=== PATIENT | female | born 1990 | race African-American/Black ===

== ENCOUNTER 2016-06-28 22:21 | Emergency (ER) | payer MEDICARE, OTHER ==
[~2016-06-28] VITALS: Ht 172.7 cm; Wt 113.0 kg
[~2016-06-28 22:21] MED LIST: OLAN10TA3 PO; VITAD1000 PO
[2016-06-28 23:10] LABS: BASOPHILS % (AUTO) 0.5 % (0.0-2.0); EOSINOPHILS % (AUTO) 0.9 % (1.0-6.0); HEMATOCRIT 35.3 % (36-46); HEMOGLOBIN 11.4 g/dL (12.0-16.0); LYMPHOCYTES # (AUTO) 3.9 K/uL (1.0-4.8); LYMPHOCYTES % (AUTO) 32.8 % (22.0-44.0); MEAN CORPUSCULAR HEMOGLOBIN 27.4 pg (26.0-34.0); MEAN CORPUSCULAR HGB CONC 32.3 G/dL (31.0-37.0); MEAN CORPUSCULAR VOLUME 85 fL (80-100); MONOCYTES # (AUTO) 0.7 K/uL (0.1-1.0); MONOCYTES % (AUTO) 5.7 % (2.0-9.0); NEUTROPHILS # (AUTO) 7.1 K/uL (1.8-7.7); NEUTROPHILS % (AUTO) 60.1 % (40.0-70.0); PLATELET COUNT (AUTO) 456 K/uL (150-450); RED BLOOD CELL COUNT(AUTO) 4.16 MIL/uL (4.00-5.20); RED CELL DISTRIBUTION WIDTH 15.1 % (11.5-14.5); WHITE BLOOD COUNT (AUTO) 11.8 K/uL (4.5-11.0)
[2016-06-28 23:14] LABS: ANION GAP 10 mmol/L (8-16); CALCIUM, TOTAL 9.1 mg/dL (8.8-10.5); CARBON DIOXIDE 27 mmol/L (22-29); CHLORIDE 102 mmol/L (98-107); CREATININE 0.92 mg/dL (0.60-1.30); GLOMERULAR FILTR. RATE CALC > 60 mL/min (>60); POTASSIUM 3.3 mmol/L (3.5-5.1); SODIUM SERUM 139 mmol/L (136-145); UREA NITROGEN, BLOOD 9 mg/dL (7-18)
[2016-06-28 23:19] LABS: ALANINE AMINOTRANSFERASE 37 U/L (12-78); ALBUMIN 3.8 g/dL (3.4-5.0); ASPARTATE AMINOTRANSFERASE 27 U/L (15-37); BILIRUBIN,TOTAL 0.6 mg/dL (0.1-1.0); TOTAL PROTEIN, SERUM 8.8 g/dL (6.4-8.2)
[2016-06-29] MEDS ORDERED: OLANZapine 5 MG TABLET PO ONE (01:15)
[2016-06-29] MEDS ORDERED: LORazepam 1 MG TABLET PO ONE (02:30)
[2016-06-29 03:03] VITALS: BP 128/69
[2016-08-13] MEDS ORDERED: FERR-89 PO (13:23)
[2016-08-13] MEDS ORDERED: VITAD1000 PO (13:23)
[2016-08-13] MEDS ORDERED: OLAN10TA6 PO (13:25)
[2016-08-13] MEDS ORDERED: NALT50 PO ×2 (13:26→16:18)
[2016-08-13] MEDS ORDERED: OLAN5Z PO (16:18)
== END 2016-06-29 05:54 | disposition home or self-care (01) ==
LOC: EMS 22:23 → MERGE 22:23 → EMS 06-29 05:54
DX: F15.10 Other stimulant abuse, uncomplicated (principal); F19.959 Other psychoactive substance use, unspecified with psychoactive substance-induced psychotic disorder, unspecified; F17.210 Nicotine dependence, cigarettes, uncomplicated; F41.9 Anxiety disorder, unspecified; F32.9 Major depressive disorder, single episode, unspecified; M19.90 Unspecified osteoarthritis, unspecified site; Z88.8 Allergy status to other drugs, medicaments and biological substances
CPT/HCPCS: 36415; 80053; 80307; 85025; 99284; G0480

== ENCOUNTER 2016-08-03 00:39 | Emergency (ER) | payer MEDICARE, OTHER ==
[~2016-08-03] VITALS: Ht 172.7 cm; Wt 97.7 kg
[2016-08-03 02:42] LABS: ANION GAP 5 mmol/L (8-16); BASOPHILS % (AUTO) 0.6 % (0.0-2.0); CALCIUM, TOTAL 8.8 mg/dL (8.8-10.5); CARBON DIOXIDE 29 mmol/L (22-29); CHLORIDE 103 mmol/L (98-107); CREATININE 0.93 mg/dL (0.60-1.30); EOSINOPHILS % (AUTO) 2.5 % (1.0-6.0); GLOMERULAR FILTR. RATE CALC > 60 mL/min (>60); HEMOGLOBIN 10.9 g/dL (12.0-16.0); LYMPHOCYTES % (AUTO) 36.7 % (22.0-44.0); MEAN CORPUSCULAR HEMOGLOBIN 28.2 pg (26.0-34.0); MEAN CORPUSCULAR VOLUME 85 fL (80-100); MONOCYTES # (AUTO) 0.7 K/uL (0.1-1.0); MONOCYTES % (AUTO) 6.8 % (2.0-9.0); NEUTROPHILS # (AUTO) 5.8 K/uL (1.8-7.7); NEUTROPHILS % (AUTO) 53.4 % (40.0-70.0); PLATELET COUNT (AUTO) 406 K/uL (150-450); POTASSIUM 3.9 mmol/L (3.5-5.1); RED BLOOD CELL COUNT(AUTO) 3.86 MIL/uL (4.00-5.20); RED CELL DISTRIBUTION WIDTH 16.4 % (11.5-14.5); SODIUM SERUM 137 mmol/L (136-145); UREA NITROGEN, BLOOD 13 mg/dL (7-18); WHITE BLOOD COUNT (AUTO) 10.9 K/uL (4.5-11.0)
[2016-08-03 02:48] LABS: ALANINE AMINOTRANSFERASE 24 U/L (12-78); ALBUMIN 3.4 g/dL (3.4-5.0); ASPARTATE AMINOTRANSFERASE 15 U/L (15-37); BILIRUBIN,TOTAL 0.2 mg/dL (0.1-1.0); TOTAL PROTEIN, SERUM 7.5 g/dL (6.4-8.2)
[2016-08-03 09:28] VITALS: BP 120/74
[2016-08-13] MEDS ORDERED: FERR-89 PO (13:23)
[2016-08-13] MEDS ORDERED: VITAD1000 PO (13:23)
[2016-08-13] MEDS ORDERED: OLAN10TA6 PO (13:25)
[2016-08-13] MEDS ORDERED: NALT50 PO ×2 (13:26→16:18)
[2016-08-13] MEDS ORDERED: OLAN5Z PO (16:18)
== END 2016-08-03 09:33 | disposition home or self-care (01) ==
LOC: EMS 00:42 → MERGE 00:42 → EMS 09:33
DX: F25.9 Schizoaffective disorder, unspecified (principal); F41.9 Anxiety disorder, unspecified; F32.9 Major depressive disorder, single episode, unspecified; F17.210 Nicotine dependence, cigarettes, uncomplicated; F11.90 Opioid use, unspecified, uncomplicated; F19.90 Other psychoactive substance use, unspecified, uncomplicated; Z88.8 Allergy status to other drugs, medicaments and biological substances
CPT/HCPCS: 36415; 80053; 85025; 99284; G0480

== ENCOUNTER 2016-08-18 08:55 | Emergency (ER) | payer MEDICARE, OTHER ==
[~2016-08-18] VITALS: Ht 180.3 cm; Wt 109.1 kg
[~2016-08-18 08:55] MED LIST changes: +FERR-89 PO; +NALT50 PO; -OLAN10TA3 PO; +OLAN5Z PO
[2016-08-18 10:14] LABS: BASOPHILS % (AUTO) 0.4 % (0.0-2.0); HEMOGLOBIN 11.5 g/dL (12.0-16.0); LYMPHOCYTES # (AUTO) 1.8 K/uL (1.0-4.8); LYMPHOCYTES % (AUTO) 15.8 % (22.0-44.0); MEAN CORPUSCULAR HEMOGLOBIN 27.5 pg (26.0-34.0); MEAN CORPUSCULAR VOLUME 83 fL (80-100); MONOCYTES # (AUTO) 0.7 K/uL (0.1-1.0); MONOCYTES % (AUTO) 5.9 % (2.0-9.0); NEUTROPHILS # (AUTO) 8.6 K/uL (1.8-7.7); NEUTROPHILS % (AUTO) 76.9 % (40.0-70.0); PLATELET COUNT (AUTO) 355 K/uL (150-450); RED CELL DISTRIBUTION WIDTH 16.2 % (11.5-14.5); WHITE BLOOD COUNT (AUTO) 11.2 K/uL (4.5-11.0)
[2016-08-18 10:27] LABS: ALANINE AMINOTRANSFERASE 32 U/L (12-78); ALBUMIN 3.7 g/dL (3.4-5.0); ANION GAP 9 mmol/L (8-16); ASPARTATE AMINOTRANSFERASE 36 U/L (15-37); BILIRUBIN,TOTAL 0.8 mg/dL (0.1-1.0); CALCIUM, TOTAL 8.9 mg/dL (8.8-10.5); CARBON DIOXIDE 28 mmol/L (22-29); CHLORIDE 103 mmol/L (98-107); CREATININE 1.01 mg/dL (0.60-1.30); GLOMERULAR FILTR. RATE CALC > 60 mL/min (>60); SODIUM SERUM 140 mmol/L (136-145); TOTAL PROTEIN, SERUM 8.2 g/dL (6.4-8.2); UREA NITROGEN, BLOOD 14 mg/dL (7-18)
[2016-08-18 10:45] LABS: POTASSIUM 2.9 mmol/L (3.5-5.1)
[2016-08-18] MEDS ORDERED: POTASSIUM CHLORIDE 20 MEQ ER TABLET PO ONE (11:15)
[2016-08-18 12:03] LABS: APPEARANCE,URINE CLOUDY (CLEAR); GLUCOSE, URINE (UA) NEGATIVE (NEGATIVE); KETONES,URINE TRACE mg/dL (NEGATIVE); LEUKOCYTE ESTERASE ,URINE SMALL (NEGATIVE); OCCULT BLOOD,URINE TRACE (NEGATIVE); PH,URINE 5.5 (5.0-8.0); PROTEIN,URINE POS 1+ (NEGATIVE)
[2016-08-18 12:08] LABS: ADD UA MICROSCOPIC YES
[2016-08-18 12:21] LABS: SQUAMOUS EPITHELIAL CELL,UR Few /LPF (None Seen)
[2016-08-18 15:50] VITALS: BP 126/83
== END 2016-08-18 15:55 | disposition home or self-care (01) ==
LOC: EMS 08:58 → EDBD 08:58 → EMS 15:55
DX: R41.82 Altered mental status, unspecified (principal); E87.6 Hypokalemia; F15.10 Other stimulant abuse, uncomplicated; F17.210 Nicotine dependence, cigarettes, uncomplicated
CPT/HCPCS: 36415; 80053; 80307; 81001; 84703; 85025; 87086; 99284; 99406; G0480

== ENCOUNTER 2016-11-13 17:25 | Inpatient (IN) | payer MEDICARE, MEDICAID ==
[~2016-11-13] VITALS: Ht 175.3 cm; Wt 119.5 kg
[~2016-11-13 17:25] MED LIST changes: -NALT50 PO; +NALT50TA6 PO; +OLAN10TA6 PO; +OLAN5TAB40 PO; -OLAN5Z PO
[2016-11-13] MEDS ORDERED: HALOPERIDOL LACTATE 5 MG/ML VIAL IM ONE (17:45)
[2016-11-13 18:27] LABS: GLUCOSE,POINT OF CARE 86 MG/DL (70-110)
[2016-11-13 18:42] LABS: BASOPHILS % (AUTO) 0.3 % (0.0-2.0); EOSINOPHILS % (AUTO) 0.9 % (1.0-6.0); HEMATOCRIT 32.3 % (36-46); HEMOGLOBIN 10.9 g/dL (12.0-16.0); LYMPHOCYTES # (AUTO) 2.8 K/uL (1.0-4.8); LYMPHOCYTES % (AUTO) 22.7 % (22.0-44.0); MEAN CORPUSCULAR HEMOGLOBIN 28.9 pg (26.0-34.0); MEAN CORPUSCULAR HGB CONC 33.8 G/dL (31.0-37.0); MEAN CORPUSCULAR VOLUME 86 fL (80-100); MONOCYTES # (AUTO) 1.3 K/uL (0.1-1.0); MONOCYTES % (AUTO) 10.3 % (2.0-9.0); NEUTROPHILS # (AUTO) 8.1 K/uL (1.8-7.7); NEUTROPHILS % (AUTO) 65.8 % (40.0-70.0); PLATELET COUNT (AUTO) 335 K/uL (150-450); RED BLOOD CELL COUNT(AUTO) 3.77 MIL/uL (4.00-5.20); RED CELL DISTRIBUTION WIDTH 17.2 % (11.5-14.5); WHITE BLOOD COUNT (AUTO) 12.3 K/uL (4.5-11.0)
[2016-11-13 19:07] LABS: ANION GAP 13 mmol/L (8-16); CALCIUM, TOTAL 8.9 mg/dL (8.8-10.5); CARBON DIOXIDE 23 mmol/L (22-29); CHLORIDE 103 mmol/L (98-107); CREATININE 0.88 mg/dL (0.60-1.30); GLOMERULAR FILTR. RATE CALC > 60 mL/min (>60); POTASSIUM 3.5 mmol/L (3.5-5.1); SODIUM SERUM 139 mmol/L (136-145); UREA NITROGEN, BLOOD 9 mg/dL (7-18)
[2016-11-13 19:11] LABS: RBC MORPHOLOGY COMMENT ABNORMAL RBC MORPH
[2016-11-13 19:13] LABS: ALANINE AMINOTRANSFERASE 44 U/L (12-78); ASPARTATE AMINOTRANSFERASE 71 U/L (15-37); BILIRUBIN,TOTAL 0.8 mg/dL (0.1-1.0); TOTAL PROTEIN, SERUM 8.7 g/dL (6.4-8.2)
[2016-11-14] MEDS ORDERED: ZOLPIDEM TARTRATE 5 MG TABLET PO PRN (09:00)
[2016-11-14] MEDS ORDERED: QUEtiapine FUMARATE 100 MG TABLET PO PRN (09:00)
[2016-11-14] MEDS ORDERED: LORazepam 2 MG TABLET PO PRN (09:00)
[2016-11-14] MEDS: OLANZapine 10 MG TABLET PO SCH (21:18)
[2016-11-14] MEDS: DiphenhydrAMINE HCL 25 MG CAPSULE PO SCH (21:18)
[2016-11-14 21:45] VITALS: BP 120/60
[2016-11-14] MEDS ORDERED: PNEUMOCOCCAL VACCINE POLYVALENT 0.5 ML VIAL [PPSV23] IM ONE (23:00)
[2016-11-15 02:42] VITALS: BP 115/62
[2016-11-15 08:03] VITALS: BP 117/64
[2016-11-15 16:24] VITALS: BP 100/65
[2016-11-15] MEDS: OLANZapine 10 MG TABLET PO SCH (20:37)
[2016-11-15] MEDS: DiphenhydrAMINE HCL 25 MG CAPSULE PO SCH (20:39)
[2016-11-16 08:51] VITALS: BP 115/60
[2016-11-16] MEDS ORDERED: HydrOXYzine PAMOATE 50 MG CAPSULE PO PRN (14:00)
[2016-11-16] MEDS ORDERED: LOPERAMIDE HCL 2 MG CAPSULE PO PRN (14:00)
[2016-11-16] MEDS ORDERED: ACETAMINOPHEN 325 MG TABLET PO PRN (14:00)
[2016-11-16] MEDS ORDERED: PROMETHAZINE HCL 25 MG TABLET PO PRN (14:00)
[2016-11-16] MEDS ORDERED: MAGNESIUM HYDROXIDE SUSPENSION 30 ML UDCUP PO PRN (14:00)
[2016-11-16] MEDS ORDERED: GuaiFENesin/D-METHORPHAN [SUGAR-FREE] 200-20MG/10 ML SYRUP UDCUP PO PRN (14:00)
[2016-11-16] MEDS ORDERED: MAG HYDROX/AL HYDROX/SIMETH ES 30 ML SUSPENSION UDCUP PO PRN (14:00)
[2016-11-16 16:03] VITALS: BP 105/62
[2016-11-16] MEDS: THIAMINE HCL 100 MG TABLET PO SCH (17:00)
[2016-11-16] MEDS: DiphenhydrAMINE HCL 25 MG CAPSULE PO SCH (20:30)
[2016-11-16] MEDS: OLANZapine 5 MG TABLET PO SCH (20:31)
[2016-11-17 08:00] VITALS: BP 101/60
[2016-11-17] MEDS: FOLIC ACID 1 MG TABLET PO SCH (08:06)
[2016-11-17] MEDS: THIAMINE HCL 100 MG TABLET PO SCH ×2 (08:06→16:51)
[2016-11-17] MEDS: MULTIVITAMINS WITH MINERALS, THERAPEUTIC TABLET PO SCH (08:06)
[2016-11-17 16:01] VITALS: BP 105/67
[2016-11-17] MEDS: FERROUS SULFATE 325 MG EC TABLET PO SCH (17:14)
[2016-11-17] MEDS: DiphenhydrAMINE HCL 25 MG CAPSULE PO SCH (20:32)
[2016-11-17] MEDS: OLANZapine 5 MG TABLET PO SCH (20:32)
[2016-11-18] MEDS: FERROUS SULFATE 325 MG EC TABLET PO SCH ×2 (06:58→17:21)
[2016-11-18 08:14] VITALS: BP 106/67
[2016-11-18] MEDS: FOLIC ACID 1 MG TABLET PO SCH (08:46)
[2016-11-18] MEDS: THIAMINE HCL 100 MG TABLET PO SCH ×2 (08:46→17:21)
[2016-11-18] MEDS: MULTIVITAMINS WITH MINERALS, THERAPEUTIC TABLET PO SCH (08:46)
[2016-11-18 16:11] VITALS: BP 102/60
[2016-11-18] MEDS: OLANZapine 5 MG TABLET PO SCH (20:09)
[2016-11-18] MEDS: DiphenhydrAMINE HCL 25 MG CAPSULE PO SCH (20:09)
[2016-11-19] MEDS: FERROUS SULFATE 325 MG EC TABLET PO SCH ×2 (07:00→16:40)
[2016-11-19 08:12] VITALS: BP 104/71
[2016-11-19] MEDS: FOLIC ACID 1 MG TABLET PO SCH (08:25)
[2016-11-19] MEDS: THIAMINE HCL 100 MG TABLET PO SCH ×2 (08:25→16:40)
[2016-11-19] MEDS: MULTIVITAMINS WITH MINERALS, THERAPEUTIC TABLET PO SCH (08:25)
[2016-11-19 08:43] LABS: BASOPHILS % (AUTO) 0.7 % (0.0-2.0); EOSINOPHILS % (AUTO) 2.4 % (1.0-6.0); HEMATOCRIT 35.7 % (36-46); LYMPHOCYTES # (AUTO) 2.6 K/uL (1.0-4.8); LYMPHOCYTES % (AUTO) 33.4 % (22.0-44.0); MEAN CORPUSCULAR HEMOGLOBIN 28.8 pg (26.0-34.0); MEAN CORPUSCULAR HGB CONC 33.5 G/dL (31.0-37.0); MEAN CORPUSCULAR VOLUME 86 fL (80-100); MONOCYTES # (AUTO) 0.6 K/uL (0.1-1.0); MONOCYTES % (AUTO) 7.8 % (2.0-9.0); NEUTROPHILS # (AUTO) 4.3 K/uL (1.8-7.7); NEUTROPHILS % (AUTO) 55.7 % (40.0-70.0); PLATELET COUNT (AUTO) 369 K/uL (150-450); RED BLOOD CELL COUNT(AUTO) 4.16 MIL/uL (4.00-5.20); RED CELL DISTRIBUTION WIDTH 16.8 % (11.5-14.5); WHITE BLOOD COUNT (AUTO) 7.7 K/uL (4.5-11.0)
[2016-11-19 16:01] VITALS: BP 118/71
[2016-11-19] MEDS: DiphenhydrAMINE HCL 25 MG CAPSULE PO SCH (20:29)
[2016-11-19] MEDS: OLANZapine 5 MG TABLET PO SCH (20:30)
[2016-11-20] MEDS: FERROUS SULFATE 325 MG EC TABLET PO SCH ×2 (06:48→17:07)
[2016-11-20] MEDS: THIAMINE HCL 100 MG TABLET PO SCH ×2 (08:21→17:07)
[2016-11-20 08:22] VITALS: BP 100/62
[2016-11-20] MEDS: FOLIC ACID 1 MG TABLET PO SCH (08:22)
[2016-11-20] MEDS: MULTIVITAMINS WITH MINERALS, THERAPEUTIC TABLET PO SCH (08:22)
[2016-11-20] MEDS ORDERED: OLAN5TAB27 PO (12:19)
[2016-11-20] MEDS ORDERED: DIPH25 PO (12:19)
[2016-11-20 16:04] VITALS: BP 132/84
[2016-11-20] MEDS ORDERED: FERR325T22 PO (17:32)
[2016-11-20] MEDS ORDERED: OLAN10TA6 PO (17:54)
[2016-11-20] MEDS ORDERED: FERR-89 PO (17:55)
[2016-11-20] MEDS ORDERED: DIPH50 PO (17:56)
== END 2016-11-20 18:35 | disposition home or self-care (01) | DRG 885 ==
LOC: EMS 17:27 → EDBD 17:27 → MERGE 11-14 10:08 → B2X 11-14 10:08
PROVIDERS: ADMIT Psychiatry & Neurology Psychiatry; ATTEND Psychiatry & Neurology Psychiatry
DX: F20.0 Paranoid schizophrenia (principal); R45.851 Suicidal ideations; Z91.19 Patient's noncompliance with other medical treatment and regimen; E55.9 Vitamin D deficiency, unspecified; E66.9 Obesity, unspecified; F15.10 Other stimulant abuse, uncomplicated; F17.200 Nicotine dependence, unspecified, uncomplicated; F32.9 Major depressive disorder, single episode, unspecified; K59.00 Constipation, unspecified; Z71.6 Tobacco abuse counseling; Z28.21 Immunization not carried out because of patient refusal
CPT/HCPCS: 82962; 87081; 96372; 99285; G0480; J1630

== ENCOUNTER 2016-11-27 20:09 | Emergency (ER) | payer MEDICARE, OTHER ==
[~2016-11-27] VITALS: Ht 175.3 cm; Wt 118.2 kg
[~2016-11-27 20:09] MED LIST changes: +DIPH25 PO; +DIPH50 PO; +OLAN5TAB27 PO
[2016-11-27 21:01] LABS: GLUCOSE,POINT OF CARE 142 MG/DL (70-110)
[2016-11-27 21:04] LABS: BASOPHILS % (AUTO) 0.4 % (0.0-2.0); EOSINOPHILS % (AUTO) 2.4 % (1.0-6.0); HEMATOCRIT 32.5 % (36-46); LYMPHOCYTES % (AUTO) 15.3 % (22.0-44.0); MEAN CORPUSCULAR VOLUME 85 fL (80-100); MONOCYTES # (AUTO) 1.1 K/uL (0.1-1.0); MONOCYTES % (AUTO) 8.2 % (2.0-9.0); NEUTROPHILS # (AUTO) 9.7 K/uL (1.8-7.7); NEUTROPHILS % (AUTO) 73.7 % (40.0-70.0); PLATELET COUNT (AUTO) 327 K/uL (150-450); RED BLOOD CELL COUNT(AUTO) 3.81 MIL/uL (4.00-5.20); RED CELL DISTRIBUTION WIDTH 15.4 % (11.5-14.5); WHITE BLOOD COUNT (AUTO) 13.1 K/uL (4.5-11.0)
[2016-11-27 21:06] LABS: ANION GAP 12 mmol/L (8-16); CARBON DIOXIDE 25 mmol/L (22-29); CHLORIDE 103 mmol/L (98-107); CREATININE 1.22 mg/dL (0.60-1.30); GLOMERULAR FILTR. RATE CALC 47 mL/min (>60); POTASSIUM 3.1 mmol/L (3.5-5.1); SODIUM SERUM 140 mmol/L (136-145); UREA NITROGEN, BLOOD 11 mg/dL (7-18)
[2016-11-27 21:11] LABS: ALANINE AMINOTRANSFERASE 33 U/L (12-78); ALBUMIN 3.9 g/dL (3.4-5.0); ASPARTATE AMINOTRANSFERASE 37 U/L (15-37); BILIRUBIN,TOTAL 0.7 mg/dL (0.1-1.0); TOTAL PROTEIN, SERUM 8.7 g/dL (6.4-8.2)
[2016-11-27] MEDS: HALOPERIDOL 1 MG TABLET PO ONE ×2 (21:26→21:34)
[2016-11-27] MEDS ORDERED: LORazepam 2 MG TABLET PO ONE (21:30)
[2016-11-28 05:05] VITALS: BP 115/62
== END 2016-11-28 05:25 | disposition home or self-care (01) ==
LOC: EDBD 20:11 → EMS 20:11 → MERGE 20:11 → EMS 11-28 05:25
DX: F19.10 Other psychoactive substance abuse, uncomplicated (principal); R40.1 Stupor; F17.200 Nicotine dependence, unspecified, uncomplicated
CPT/HCPCS: 36415; 80053; 80307; 82962; 84703; 85025; 99284; G0480

== ENCOUNTER 2017-01-11 14:39 | Inpatient (IN) | payer MEDICARE, MEDICAID ==
[~2017-01-11] VITALS: Ht 175.3 cm; Wt 120.0 kg
[2017-01-11 18:03] LABS: BASOPHILS % (AUTO) 0.5 % (0.0-2.0); EOSINOPHILS % (AUTO) 1.8 % (1.0-6.0); HEMATOCRIT 35.4 % (36-46); HEMOGLOBIN 11.9 g/dL (12.0-16.0); LYMPHOCYTES # (AUTO) 3.1 K/uL (1.0-4.8); LYMPHOCYTES % (AUTO) 26.2 % (22.0-44.0); MEAN CORPUSCULAR HEMOGLOBIN 28.9 pg (26.0-34.0); MEAN CORPUSCULAR HGB CONC 33.7 G/dL (31.0-37.0); MEAN CORPUSCULAR VOLUME 86 fL (80-100); MONOCYTES # (AUTO) 0.7 K/uL (0.1-1.0); MONOCYTES % (AUTO) 6.3 % (2.0-9.0); NEUTROPHILS # (AUTO) 7.6 K/uL (1.8-7.7); NEUTROPHILS % (AUTO) 65.2 % (40.0-70.0); PLATELET COUNT (AUTO) 402 K/uL (150-450); RED BLOOD CELL COUNT(AUTO) 4.13 MIL/uL (4.00-5.20); RED CELL DISTRIBUTION WIDTH 15.6 % (11.5-14.5); WHITE BLOOD COUNT (AUTO) 11.7 K/uL (4.5-11.0)
[2017-01-11 18:08] LABS: ANION GAP 14 mmol/L (8-16); CALCIUM, TOTAL 9.2 mg/dL (8.8-10.5); CARBON DIOXIDE 22 mmol/L (22-29); CHLORIDE 100 mmol/L (98-107); CREATININE 0.93 mg/dL (0.60-1.30); GLOMERULAR FILTR. RATE CALC > 60 mL/min (>60); POTASSIUM 3.7 mmol/L (3.5-5.1); SODIUM SERUM 136 mmol/L (136-145); UREA NITROGEN, BLOOD 15 mg/dL (7-18)
[2017-01-11 18:13] LABS: ALANINE AMINOTRANSFERASE 31 U/L (12-78); ALBUMIN 3.9 g/dL (3.4-5.0); ASPARTATE AMINOTRANSFERASE 46 U/L (15-37); BILIRUBIN,TOTAL 0.8 mg/dL (0.1-1.0); TOTAL PROTEIN, SERUM 8.6 g/dL (6.4-8.2)
[2017-01-11] MEDS ORDERED: OLANZapine 5 MG TABLET PO ONE (19:30)
[2017-01-11] MEDS ORDERED: OLANZapine 5 MG RAPDIS TABLET PO PRN (20:15)
[2017-01-11] MEDS ORDERED: ZOLPIDEM TARTRATE 10 MG TABLET PO PRN (20:15)
[2017-01-11] MEDS ORDERED: LORazepam 2 MG TABLET PO PRN (20:15)
[2017-01-12 01:00] LABS: APPEARANCE,URINE CLOUDY (CLEAR); GLUCOSE, URINE (UA) NEGATIVE (NEGATIVE); KETONES,URINE 40 mg/dL (NEGATIVE); LEUKOCYTE ESTERASE ,URINE NEGATIVE (NEGATIVE); OCCULT BLOOD,URINE NEGATIVE (NEGATIVE); PH,URINE 5.5 (5.0-8.0); PROTEIN,URINE TRACE (NEGATIVE)
[2017-01-12 01:07] LABS: ADD UA MICROSCOPIC NO
[2017-01-12 01:23] VITALS: BP 106/60
[2017-01-12 08:30] VITALS: BP 121/73
[2017-01-12] MEDS ORDERED: GuaiFENesin/D-METHORPHAN [SUGAR-FREE] 200-20MG/10 ML SYRUP UDCUP PO PRN (13:30)
[2017-01-12] MEDS ORDERED: MAGNESIUM HYDROXIDE SUSPENSION 30 ML UDCUP PO PRN (13:30)
[2017-01-12] MEDS ORDERED: ACETAMINOPHEN 325 MG TABLET PO PRN (13:30)
[2017-01-12] MEDS ORDERED: HydrOXYzine PAMOATE 50 MG CAPSULE PO PRN (13:30)
[2017-01-12] MEDS ORDERED: MAG HYDROX/AL HYDROX/SIMETH ES 30 ML SUSPENSION UDCUP PO PRN (13:30)
[2017-01-12] MEDS ORDERED: PROMETHAZINE HCL 25 MG TABLET PO PRN (13:30)
[2017-01-12] MEDS ORDERED: LOPERAMIDE HCL 2 MG CAPSULE PO PRN (13:30)
[2017-01-12 16:23] VITALS: BP 125/78
[2017-01-12] MEDS: THIAMINE HCL 100 MG TABLET PO SCH (16:24)
[2017-01-12] MEDS ORDERED: OLAN5TAB30 PO (18:49)
[2017-01-12] MEDS ORDERED: NALT50TA PO (18:49)
[2017-01-12] MEDS ORDERED: OLANZapine 5 MG RAPDIS TABLET PO SCH (21:00)
[2017-01-12] MEDS ORDERED: OLANZapine 10 MG RAPDIS TABLET PO SCH (21:00)
[2017-01-13 00:45] VITALS: BP 115/62
[2017-01-13 08:30] VITALS: BP 94/68
[2017-01-13] MEDS ORDERED: NALTREXONE HCL 50 MG TABLET PO SCH (09:00)
[2017-01-13] MEDS ORDERED: FOLIC ACID 1 MG TABLET PO SCH (09:00)
[2017-01-13] MEDS ORDERED: MULTIVITAMINS WITH MINERALS, THERAPEUTIC TABLET PO SCH (09:00)
[2017-01-13] MEDS ORDERED: CHOLECALCIFEROL (VIT D3) 1,000 UNITS TABLET PO SCH (09:00)
[2017-01-13] MEDS: THIAMINE HCL 100 MG TABLET PO SCH (09:13)
== END 2017-01-13 15:27 | disposition home or self-care (01) | DRG 885 ==
LOC: EMS 14:41 → 3EI 01-12 00:15
PROVIDERS: ADMIT Psychiatry & Neurology Psychiatry; ATTEND Psychiatry & Neurology Psychiatry
DX: F20.0 Paranoid schizophrenia (principal); E66.01 Morbid (severe) obesity due to excess calories; F19.20 Other psychoactive substance dependence, uncomplicated; E55.9 Vitamin D deficiency, unspecified; F11.90 Opioid use, unspecified, uncomplicated; F12.90 Cannabis use, unspecified, uncomplicated; F15.10 Other stimulant abuse, uncomplicated; F17.210 Nicotine dependence, cigarettes, uncomplicated; G47.00 Insomnia, unspecified; K59.00 Constipation, unspecified; Z68.39 Body mass index [BMI] 39.0-39.9, adult; Z91.14 Patient's other noncompliance with medication regimen; Z91.19 Patient's noncompliance with other medical treatment and regimen; Z88.8 Allergy status to other drugs, medicaments and biological substances; Z79.899 Other long term (current) drug therapy; Z71.51 Drug abuse counseling and surveillance of drug abuser; Z71.6 Tobacco abuse counseling
CPT/HCPCS: 93005; 99285; G0480

== ENCOUNTER 2017-02-16 16:54 | Inpatient (IN) | payer MEDICARE, MEDICAID ==
[~2017-02-16] VITALS: Ht 175.3 cm; Wt 123.8 kg
[~2017-02-16 16:54] MED LIST changes: +NALT50TA PO; -NALT50TA6 PO; +OLAN5TAB30 PO; -OLAN5TAB40 PO; -VITAD1000 PO
[2017-02-16 20:13] LABS: BASOPHILS % (AUTO) 0.8 % (0.0-2.0); EOSINOPHILS % (AUTO) 2.7 % (1.0-6.0); HEMATOCRIT 33.6 % (36-46); HEMOGLOBIN 11.2 g/dL (12.0-16.0); LYMPHOCYTES # (AUTO) 3.1 K/uL (1.0-4.8); LYMPHOCYTES % (AUTO) 28.7 % (22.0-44.0); MEAN CORPUSCULAR HGB CONC 33.3 G/dL (31.0-37.0); MEAN CORPUSCULAR VOLUME 87 fL (80-100); MONOCYTES # (AUTO) 0.9 K/uL (0.1-1.0); MONOCYTES % (AUTO) 8.4 % (2.0-9.0); NEUTROPHILS # (AUTO) 6.4 K/uL (1.8-7.7); NEUTROPHILS % (AUTO) 59.4 % (40.0-70.0); PLATELET COUNT (AUTO) 406 K/uL (150-450); RED BLOOD CELL COUNT(AUTO) 3.87 MIL/uL (4.00-5.20); RED CELL DISTRIBUTION WIDTH 15.6 % (11.5-14.5)
[2017-02-16 20:30] LABS: ANION GAP 8 mmol/L (8-16); CALCIUM, TOTAL 8.7 mg/dL (8.8-10.5); CARBON DIOXIDE 28 mmol/L (22-29); CHLORIDE 104 mmol/L (98-107); CREATININE 0.91 mg/dL (0.60-1.30); GLOMERULAR FILTR. RATE CALC > 60 mL/min (>60); GLUCOSE,RANDOM 123 mg/dL (70-110); SODIUM SERUM 140 mmol/L (136-145); UREA NITROGEN, BLOOD 12 mg/dL (7-18)
[2017-02-16 20:36] LABS: ALANINE AMINOTRANSFERASE 73 U/L (12-78); ALBUMIN 3.3 g/dL (3.4-5.0); ALKALINE PHOSPHATASE 58 U/L (46-116); ASPARTATE AMINOTRANSFERASE 68 U/L (15-37); BILIRUBIN,TOTAL 0.4 mg/dL (0.1-1.0); TOTAL PROTEIN, SERUM 7.9 g/dL (6.4-8.2)
[2017-02-16] MEDS ORDERED: OLANZapine 5 MG RAPDIS TABLET PO PRN (20:45)
[2017-02-16] MEDS ORDERED: LORazepam 2 MG TABLET PO PRN (20:45)
[2017-02-16] MEDS ORDERED: ZOLPIDEM TARTRATE 10 MG TABLET PO PRN (20:45)
[2017-02-16] MEDS ORDERED: QUEtiapine FUMARATE 100 MG TABLET PO PRN (21:00)
[2017-02-16] MEDS: DiphenhydrAMINE HCL 25 MG CAPSULE PO SCH (21:16)
[2017-02-16] MEDS: OLANZapine 5 MG TABLET PO SCH (21:17)
[2017-02-16 21:47] LABS: CHOL/HDL RATIO 2.8 (3.9-5.7); CHOLESTEROL 177 mg/dL (131-200); FREE T4 (FREE THYROXINE) 1.25 ng/dL (0.76-1.46); HDL CHOLESTEROL 63 mg/dL (40-60); LDL CHOL (CALC.) 101 mg/dL (0-130); THYROID STIMULATING HORMONE 1.74 uIU/mL (0.36-3.74); TRIGLYCERIDES 64 mg/dL (15-150)
[2017-02-16] MEDS ORDERED: INFLUENZA VIRUS VACCINE QVS 2017-18 (3YR+)/PF 60 MCG/0.5 ML SYRINGE IM ONE (23:45)
[2017-02-16 23:53] VITALS: BP 102/63
[2017-02-17] MEDS ORDERED: LORazepam 1 MG TABLET PO PRN (00:45)
[2017-02-17 10:00] VITALS: BP 121/71
[2017-02-17] MEDS ORDERED: ALBUTEROL SULFATE HFA 90 MCG/PUFF 8 GM INHALER IH PRN (15:30)
[2017-02-17] MEDS ORDERED: MAG HYDROX/AL HYDROX/SIMETH ES 30 ML SUSPENSION UDCUP PO PRN (15:30)
[2017-02-17] MEDS ORDERED: BACITRACIN 28.4 GM OINTMENT TP PRN (15:30)
[2017-02-17] MEDS ORDERED: IBUPROFEN 600 MG TABLET PO PRN (15:30)
[2017-02-17] MEDS ORDERED: MAGNESIUM HYDROXIDE SUSPENSION 30 ML UDCUP PO PRN (15:30)
[2017-02-17] MEDS ORDERED: LOPERAMIDE HCL 2 MG CAPSULE PO PRN (15:30)
[2017-02-17] MEDS ORDERED: CloNIDine HCL 0.1 MG TABLET PO PRN (15:30)
[2017-02-17] MEDS ORDERED: ACETAMINOPHEN 325 MG TABLET PO PRN (15:30)
[2017-02-17] MEDS ORDERED: BENZOCAINE/MENTHOL LOZENGE MM PRN (15:30)
[2017-02-17] MEDS ORDERED: ONDANSETRON HCL 4 MG TABLET PO PRN (15:30)
[2017-02-17] MEDS ORDERED: PETROLATUM,WHITE 71 GM JELLY TP PRN (15:30)
[2017-02-17 17:00] VITALS: BP 102/63
[2017-02-17] MEDS: DiphenhydrAMINE HCL 25 MG CAPSULE PO SCH (20:27)
[2017-02-17] MEDS: OLANZapine 5 MG TABLET PO SCH (20:27)
[2017-02-18] MEDS: OMEPRAZOLE 20 MG CAPSULE PO SCH (09:39)
[2017-02-18] MEDS: DOCUSATE SODIUM 100 MG CAPSULE PO SCH (09:39)
[2017-02-18 16:15] VITALS: BP 121/64
[2017-02-18] MEDS: DiphenhydrAMINE HCL 25 MG CAPSULE PO SCH (20:32)
[2017-02-18] MEDS ORDERED: OLANZapine 10 MG TABLET PO SCH (21:00)
[2017-02-19 05:49] VITALS: BP 128/66
[2017-02-19] MEDS: MULTIVITAMINS WITH MINERALS, THERAPEUTIC TABLET PO SCH (06:54)
[2017-02-19] MEDS: OMEPRAZOLE 20 MG CAPSULE PO SCH (09:08)
[2017-02-19] MEDS: DOCUSATE SODIUM 100 MG CAPSULE PO SCH (09:08)
[2017-02-19] MEDS: CHOLECALCIFEROL (VIT D3) 1,000 UNITS TABLET PO SCH (09:08)
[2017-02-19 09:39] VITALS: BP 121/75
[2017-02-19] MEDS ORDERED: LOPERAMIDE HCL 2 MG CAPSULE PO PRN (14:30)
[2017-02-19] MEDS ORDERED: GuaiFENesin/D-METHORPHAN [SUGAR-FREE] 200-20MG/10 ML SYRUP UDCUP PO PRN (14:30)
[2017-02-19] MEDS ORDERED: HydrOXYzine PAMOATE 50 MG CAPSULE PO PRN (14:30)
[2017-02-19] MEDS: THIAMINE HCL 100 MG TABLET PO SCH (16:11)
[2017-02-19 16:18] VITALS: BP 100/68
[2017-02-19] MEDS: DiphenhydrAMINE HCL 25 MG CAPSULE PO SCH (20:10)
[2017-02-19] MEDS: OLANZapine 7.5 MG TABLET PO SCH (20:11)
[2017-02-20 01:10] VITALS: BP 102/67
[2017-02-20] MEDS: MULTIVITAMINS WITH MINERALS, THERAPEUTIC TABLET PO SCH (06:50)
[2017-02-20] MEDS: DOCUSATE SODIUM 100 MG CAPSULE PO SCH (08:08)
[2017-02-20] MEDS: THIAMINE HCL 100 MG TABLET PO SCH ×2 (08:08→16:29)
[2017-02-20] MEDS: FOLIC ACID 1 MG TABLET PO SCH (08:08)
[2017-02-20] MEDS: OMEPRAZOLE 20 MG CAPSULE PO SCH (08:08)
[2017-02-20] MEDS: CHOLECALCIFEROL (VIT D3) 1,000 UNITS TABLET PO SCH (08:08)
[2017-02-20 08:19] VITALS: BP 121/65
[2017-02-20 16:00] VITALS: BP 103/63
[2017-02-20] MEDS: DiphenhydrAMINE HCL 25 MG CAPSULE PO SCH (20:24)
[2017-02-20] MEDS: OLANZapine 7.5 MG TABLET PO SCH (20:24)
[2017-02-21 06:23] VITALS: BP 120/90
[2017-02-21] MEDS: MULTIVITAMINS WITH MINERALS, THERAPEUTIC TABLET PO SCH (07:11)
[2017-02-21] MEDS: FLUoxetine HCL 20 MG CAPSULE PO SCH (08:42)
[2017-02-21] MEDS: OMEPRAZOLE 20 MG CAPSULE PO SCH (08:42)
[2017-02-21] MEDS: FOLIC ACID 1 MG TABLET PO SCH (08:42)
[2017-02-21] MEDS: CHOLECALCIFEROL (VIT D3) 1,000 UNITS TABLET PO SCH (08:42)
[2017-02-21] MEDS: THIAMINE HCL 100 MG TABLET PO SCH ×2 (08:42→16:25)
[2017-02-21] MEDS: DOCUSATE SODIUM 100 MG CAPSULE PO SCH (08:42)
[2017-02-21 08:43] VITALS: BP 108/60
[2017-02-21 16:25] VITALS: BP 95/52
[2017-02-21 18:07] VITALS: BP 106/71
[2017-02-21] MEDS: DiphenhydrAMINE HCL 25 MG CAPSULE PO SCH (20:29)
[2017-02-21] MEDS: OLANZapine 7.5 MG TABLET PO SCH (20:29)
[2017-02-22 06:45] VITALS: BP 106/68
[2017-02-22] MEDS: MULTIVITAMINS WITH MINERALS, THERAPEUTIC TABLET PO SCH (06:48)
[2017-02-22] MEDS: CHOLECALCIFEROL (VIT D3) 1,000 UNITS TABLET PO SCH (08:57)
[2017-02-22] MEDS: THIAMINE HCL 100 MG TABLET PO SCH ×2 (08:58→16:30)
[2017-02-22] MEDS: OMEPRAZOLE 20 MG CAPSULE PO SCH (08:58)
[2017-02-22] MEDS: DOCUSATE SODIUM 100 MG CAPSULE PO SCH (08:58)
[2017-02-22] MEDS: FOLIC ACID 1 MG TABLET PO SCH (08:58)
[2017-02-22] MEDS: FLUoxetine HCL 20 MG CAPSULE PO SCH (08:58)
[2017-02-22 09:35] VITALS: BP 108/60
[2017-02-22 16:19] VITALS: BP 106/62
[2017-02-22] MEDS: DiphenhydrAMINE HCL 25 MG CAPSULE PO SCH (20:43)
[2017-02-22] MEDS: OLANZapine 7.5 MG TABLET PO SCH (20:44)
[2017-02-23 01:46] VITALS: BP 106/82
[2017-02-23] MEDS: MULTIVITAMINS WITH MINERALS, THERAPEUTIC TABLET PO SCH (06:38)
[2017-02-23 08:21] VITALS: BP 104/58
[2017-02-23] MEDS: DOCUSATE SODIUM 100 MG CAPSULE PO SCH (08:57)
[2017-02-23] MEDS: OMEPRAZOLE 20 MG CAPSULE PO SCH (08:57)
[2017-02-23] MEDS: FLUoxetine HCL 20 MG CAPSULE PO SCH (08:57)
[2017-02-23] MEDS: FOLIC ACID 1 MG TABLET PO SCH (08:57)
[2017-02-23] MEDS: CHOLECALCIFEROL (VIT D3) 1,000 UNITS TABLET PO SCH (08:57)
[2017-02-23] MEDS: THIAMINE HCL 100 MG TABLET PO SCH (08:58)
[2017-02-23] MEDS ORDERED: VITAD1000 PO (14:39)
[2017-02-23] MEDS ORDERED: OMEP20 PO (14:39)
[2017-02-23] MEDS ORDERED: OLAN7.5T2 PO (14:39)
[2017-02-23] MEDS ORDERED: FLUO-191 PO (14:39)
[2017-02-23] MEDS ORDERED: DIPH25 PO (14:39)
[2017-02-23] MEDS ORDERED: DSS100 PO (14:39)
== END 2017-02-23 15:45 | disposition home or self-care (01) | DRG 885 ==
LOC: EMS 17:01 → B2X 21:42
PROVIDERS: ADMIT Psychiatry & Neurology Psychiatry; ATTEND Psychiatry & Neurology Psychiatry
DX: F20.0 Paranoid schizophrenia (principal); R45.851 Suicidal ideations; Z68.41 Body mass index [BMI] 40.0-44.9, adult; E66.9 Obesity, unspecified; I10 Essential (primary) hypertension; F32.9 Major depressive disorder, single episode, unspecified; E55.9 Vitamin D deficiency, unspecified; D64.9 Anemia, unspecified; K59.09 Other constipation; K21.9 Gastro-esophageal reflux disease without esophagitis; Z91.02 Food additives allergy status; Z56.0 Unemployment, unspecified; Z91.14 Patient's other noncompliance with medication regimen
CPT/HCPCS: 82306; 83036; 84439; 84443; 86592; 99285; G0480

== ENCOUNTER 2017-03-01 04:37 | Emergency (ER) | payer MEDICARE, OTHER ==
[~2017-03-01] VITALS: Ht 182.9 cm; Wt 118.2 kg
[~2017-03-01 04:37] MED LIST changes: -DIPH50 PO; +DSS100 PO; -FERR-89 PO; +FLUO-191 PO; -NALT50TA PO; -OLAN10TA6 PO; -OLAN5TAB27 PO; -OLAN5TAB30 PO; +OLAN7.5T2 PO; +OMEP20 PO; +VITAD1000 PO
[2017-03-01 04:43] VITALS: BP 142/98
[2017-03-01 05:44] LABS: BASOPHILS # (AUTO) 0.05 K/uL (0.00-0.20); BASOPHILS % (AUTO) 0.4 % (0.0-2.0); EOSINOPHILS # (AUTO) 0.12 K/uL (0.00-0.70); EOSINOPHILS % (AUTO) 1.02 % (1.0-6.0); HEMATOCRIT 32.8 % (36-46); HEMOGLOBIN 11.1 g/dL (12.0-16.0); LYMPHOCYTES # (AUTO) 2.7 K/uL (1.0-4.8); LYMPHOCYTES % (AUTO) 23.3 % (22.0-44.0); MEAN CORPUSCULAR HEMOGLOBIN 29.3 pg (26.0-34.0); MEAN CORPUSCULAR HGB CONC 33.9 G/dL (31.0-37.0); MEAN CORPUSCULAR VOLUME 86 fL (80-100); MONOCYTES % (AUTO) 8.7 % (2.0-9.0); NEUTROPHILS # (AUTO) 7.7 K/uL (1.8-7.7); NEUTROPHILS % (AUTO) 66.6 % (40.0-70.0); PLATELET COUNT (AUTO) 347 K/uL (150-450); RED BLOOD CELL COUNT(AUTO) 3.79 MIL/uL (4.00-5.20); RED CELL DISTRIBUTION WIDTH 15.3 % (11.5-14.5)
[2017-03-01 06:13] LABS: ANION GAP 10 mmol/L (8-16); CALCIUM, TOTAL 8.9 mg/dL (8.8-10.5); CARBON DIOXIDE 27 mmol/L (22-29); CHLORIDE 101 mmol/L (98-107); CREATININE 1.12 mg/dL (0.60-1.30); GLOMERULAR FILTR. RATE CALC > 60 mL/min (>60); GLUCOSE,RANDOM 120 mg/dL (70-110); POTASSIUM 3.5 mmol/L (3.5-5.1); SODIUM SERUM 138 mmol/L (136-145); UREA NITROGEN, BLOOD 12 mg/dL (7-18)
[2017-03-01 06:18] LABS: ALANINE AMINOTRANSFERASE 55 U/L (12-78); ALBUMIN 3.7 g/dL (3.4-5.0); ALKALINE PHOSPHATASE 65 U/L (46-116); ASPARTATE AMINOTRANSFERASE 56 U/L (15-37); BILIRUBIN,TOTAL 0.7 mg/dL (0.1-1.0); TOTAL PROTEIN, SERUM 8.2 g/dL (6.4-8.2)
== END 2017-03-01 10:03 | disposition left against medical advice (07) ==
LOC: EMS 04:39
DX: Z53.21 Procedure and treatment not carried out due to patient leaving prior to being seen by health care provider (principal)
CPT/HCPCS: 36415; 80053; 85025; G0480

== ENCOUNTER 2017-04-02 18:36 | Emergency (ER) | payer MEDICARE, OTHER ==
[~2017-04-02] VITALS: Ht 167.6 cm; Wt 136.4 kg
[2017-04-02 20:34] LABS: BASOPHILS % (AUTO) 0.5 % (0.0-2.0); EOSINOPHILS % (AUTO) 1.5 % (1.0-6.0); HEMATOCRIT 32.7 % (36-46); LYMPHOCYTES # (AUTO) 2.8 K/uL (1.0-4.8); LYMPHOCYTES % (AUTO) 21.6 % (22.0-44.0); MEAN CORPUSCULAR HEMOGLOBIN 27.8 pg (26.0-34.0); MEAN CORPUSCULAR HGB CONC 33.5 G/dL (31.0-37.0); MEAN CORPUSCULAR VOLUME 83 fL (80-100); MONOCYTES # (AUTO) 1.1 K/uL (0.1-1.0); MONOCYTES % (AUTO) 8.5 % (2.0-9.0); NEUTROPHILS # (AUTO) 8.9 K/uL (1.8-7.7); NEUTROPHILS % (AUTO) 67.9 % (40.0-70.0); PLATELET COUNT (AUTO) 410 K/uL (150-450); RED BLOOD CELL COUNT(AUTO) 3.95 MIL/uL (4.00-5.20); RED CELL DISTRIBUTION WIDTH 15.3 % (11.5-14.5)
[2017-04-02 20:40] LABS: ANION GAP 8 mmol/L (8-16); CALCIUM, TOTAL 8.9 mg/dL (8.8-10.5); CARBON DIOXIDE 26 mmol/L (22-29); CHLORIDE 103 mmol/L (98-107); CREATININE 0.87 mg/dL (0.60-1.30); GLOMERULAR FILTR. RATE CALC > 60 mL/min (>60); GLUCOSE,RANDOM 114 mg/dL (70-110); POTASSIUM 3.6 mmol/L (3.5-5.1); SODIUM SERUM 137 mmol/L (136-145); UREA NITROGEN, BLOOD 15 mg/dL (7-18)
[2017-04-02 20:46] LABS: ALANINE AMINOTRANSFERASE 35 U/L (12-78); ALBUMIN 3.6 g/dL (3.4-5.0); ALKALINE PHOSPHATASE 63 U/L (46-116); ASPARTATE AMINOTRANSFERASE 35 U/L (15-37); BILIRUBIN,TOTAL 0.5 mg/dL (0.1-1.0)
[2017-04-02] MEDS ORDERED: OLANZapine 5 MG TABLET PO ONE (22:15)
[2017-04-03 01:52] LABS: AMPHET/METH SCREEN,URINE POSITIVE (NEGATIVE); BARBITURATE SCREEN, URINE NEGATIVE (NEGATIVE); BENZODIAZEPINES SCREEN,URINE NEGATIVE (NEGATIVE); CANNABINOID SCREEN,URINE NEGATIVE (NEGATIVE); COCAINE SCREEN,URINE NEGATIVE (NEGATIVE); METHADONE SCREEN, URINE NEGATIVE (NEGATIVE); OPIATE SCREEN,URINE NEGATIVE (NEGATIVE)
[2017-04-03 01:54] LABS: PHENCYCLIDINE SCREEN,URINE NEGATIVE (NEGATIVE)
[2017-04-03 04:51] VITALS: BP 108/64
== END 2017-04-03 05:30 | disposition home or self-care (01) ==
LOC: EMS 18:40
DX: F20.0 Paranoid schizophrenia (principal); F15.10 Other stimulant abuse, uncomplicated
CPT/HCPCS: 36415; 80053; 80307; 85025; 99284; G0480

== ENCOUNTER 2017-04-09 07:14 | Inpatient (IN) | payer MEDICARE, MEDICAID ==
[~2017-04-09] VITALS: Ht 170.2 cm; Wt 123.7 kg
[2017-04-09 07:33] LABS: GLUCOSE,POINT OF CARE 113 MG/DL (70-110)
[2017-04-09 08:19] LABS: BASOPHILS % (AUTO) 0.7 % (0.0-2.0); EOSINOPHILS % (AUTO) 1.6 % (1.0-6.0); HEMATOCRIT 34.1 % (36-46); HEMOGLOBIN 11.4 g/dL (12.0-16.0); LYMPHOCYTES % (AUTO) 21.7 % (22.0-44.0); MEAN CORPUSCULAR HEMOGLOBIN 27.9 pg (26.0-34.0); MEAN CORPUSCULAR HGB CONC 33.4 G/dL (31.0-37.0); MEAN CORPUSCULAR VOLUME 84 fL (80-100); MONOCYTES # (AUTO) 0.7 K/uL (0.1-1.0); MONOCYTES % (AUTO) 7.6 % (2.0-9.0); NEUTROPHILS # (AUTO) 6.2 K/uL (1.8-7.7); NEUTROPHILS % (AUTO) 68.4 % (40.0-70.0); PLATELET COUNT (AUTO) 440 K/uL (150-450); RED BLOOD CELL COUNT(AUTO) 4.08 MIL/uL (4.00-5.20); RED CELL DISTRIBUTION WIDTH 15.2 % (11.5-14.5)
[2017-04-09 08:26] LABS: AMPHET/METH SCREEN,URINE POSITIVE (NEGATIVE); BARBITURATE SCREEN, URINE NEGATIVE (NEGATIVE); BENZODIAZEPINES SCREEN,URINE NEGATIVE (NEGATIVE); CANNABINOID SCREEN,URINE NEGATIVE (NEGATIVE); COCAINE SCREEN,URINE NEGATIVE (NEGATIVE); METHADONE SCREEN, URINE NEGATIVE (NEGATIVE); OPIATE SCREEN,URINE NEGATIVE (NEGATIVE)
[2017-04-09 08:27] LABS: PHENCYCLIDINE SCREEN,URINE NEGATIVE (NEGATIVE)
[2017-04-09 08:27] LABS: ANION GAP 10 mmol/L (8-16); CALCIUM, TOTAL 9.1 mg/dL (8.8-10.5); CARBON DIOXIDE 26 mmol/L (22-29); CHLORIDE 104 mmol/L (98-107); GLOMERULAR FILTR. RATE CALC > 60 mL/min (>60); GLUCOSE,RANDOM 101 mg/dL (70-110); POTASSIUM 3.7 mmol/L (3.5-5.1); SODIUM SERUM 140 mmol/L (136-145); UREA NITROGEN, BLOOD 13 mg/dL (7-18)
[2017-04-09 08:33] LABS: ALANINE AMINOTRANSFERASE 32 U/L (12-78); ALBUMIN 3.8 g/dL (3.4-5.0); ALKALINE PHOSPHATASE 59 U/L (46-116); ASPARTATE AMINOTRANSFERASE 29 U/L (15-37); BILIRUBIN,TOTAL 0.6 mg/dL (0.1-1.0); TOTAL PROTEIN, SERUM 8.3 g/dL (6.4-8.2)
[2017-04-09] MEDS ORDERED: HALOPERIDOL 5 MG TABLET PO PRN (09:30)
[2017-04-09] MEDS ORDERED: LORazepam 2 MG TABLET PO PRN (09:30)
[2017-04-09] MEDS ORDERED: ZOLPIDEM TARTRATE 10 MG TABLET PO PRN (09:30)
[2017-04-09 13:28] LABS: THYROID STIMULATING HORMONE 1.28 uIU/mL (0.36-3.74)
[2017-04-09 14:11] VITALS: BP 146/81
[2017-04-09 18:31] VITALS: BP 133/77
[2017-04-09] MEDS: DiphenhydrAMINE HCL 25 MG CAPSULE PO SCH (20:25)
[2017-04-09] MEDS: OLANZapine 10 MG TABLET PO SCH (20:25)
[2017-04-10 08:15] VITALS: BP 108/69
[2017-04-10] MEDS ORDERED: IBUPROFEN 600 MG TABLET PO PRN (08:15)
[2017-04-10] MEDS ORDERED: MAG HYDROX/AL HYDROX/SIMETH ES 30 ML SUSPENSION UDCUP PO PRN (08:15)
[2017-04-10] MEDS ORDERED: MAGNESIUM HYDROXIDE SUSPENSION 30 ML UDCUP PO PRN (08:15)
[2017-04-10] MEDS ORDERED: ONDANSETRON HCL 4 MG TABLET PO PRN (08:15)
[2017-04-10] MEDS ORDERED: LOPERAMIDE HCL 2 MG CAPSULE PO PRN (08:15)
[2017-04-10] MEDS ORDERED: ACETAMINOPHEN 325 MG TABLET PO PRN (08:15)
[2017-04-10] MEDS ORDERED: CloNIDine HCL 0.1 MG TABLET PO PRN (08:15)
[2017-04-10] MEDS ORDERED: BACITRACIN 28.4 GM OINTMENT TP PRN (08:15)
[2017-04-10] MEDS ORDERED: PETROLATUM,WHITE 71 GM JELLY TP PRN (08:15)
[2017-04-10] MEDS ORDERED: ALBUTEROL SULFATE HFA 90 MCG/PUFF 8 GM INHALER IH PRN (08:15)
[2017-04-10] MEDS ORDERED: BENZOCAINE/MENTHOL LOZENGE [8 LOZENGES/PACKET] MM PRN (08:30)
[2017-04-10] MEDS: FLUoxetine HCL 20 MG CAPSULE PO SCH (08:55)
[2017-04-10] MEDS: CHOLECALCIFEROL (VIT D3) 1,000 UNITS TABLET PO SCH (08:55)
[2017-04-10 16:07] VITALS: BP 101/59
[2017-04-10] MEDS: DiphenhydrAMINE HCL 25 MG CAPSULE PO SCH (20:06)
[2017-04-10] MEDS: OLANZapine 10 MG TABLET PO SCH (20:06)
[2017-04-11 08:15] VITALS: BP 106/65
[2017-04-11] MEDS: FLUoxetine HCL 20 MG CAPSULE PO SCH (09:17)
[2017-04-11] MEDS: CHOLECALCIFEROL (VIT D3) 1,000 UNITS TABLET PO SCH (09:17)
[2017-04-11 16:43] VITALS: BP 102/61
[2017-04-11] MEDS: OLANZapine 10 MG TABLET PO SCH (20:28)
[2017-04-11] MEDS: DiphenhydrAMINE HCL 25 MG CAPSULE PO SCH (20:28)
[2017-04-12] MEDS: FLUoxetine HCL 20 MG CAPSULE PO SCH (08:21)
[2017-04-12] MEDS: CHOLECALCIFEROL (VIT D3) 1,000 UNITS TABLET PO SCH (08:22)
[2017-04-12 09:10] VITALS: BP 110/69
[2017-04-12 17:12] VITALS: BP 108/58
[2017-04-12] MEDS: DiphenhydrAMINE HCL 25 MG CAPSULE PO SCH (21:19)
[2017-04-12] MEDS: OLANZapine 10 MG TABLET PO SCH (21:19)
[2017-04-13 08:30] VITALS: BP 118/77
[2017-04-13] MEDS: CHOLECALCIFEROL (VIT D3) 1,000 UNITS TABLET PO SCH (08:37)
[2017-04-13] MEDS: FLUoxetine HCL 20 MG CAPSULE PO SCH (08:37)
[2017-04-13 19:35] VITALS: BP 110/70
[2017-04-13] MEDS: DiphenhydrAMINE HCL 25 MG CAPSULE PO SCH (20:20)
[2017-04-13] MEDS: OLANZapine 10 MG TABLET PO SCH (20:21)
[2017-04-14] MEDS: CHOLECALCIFEROL (VIT D3) 1,000 UNITS TABLET PO SCH (08:19)
[2017-04-14] MEDS: FLUoxetine HCL 20 MG CAPSULE PO SCH (08:20)
[2017-04-14] MEDS ORDERED: IOVERSOL 350 MG/ML 150 ML VIAL ONE (08:21)
[2017-04-14 17:00] VITALS: BP 112/70
[2017-04-14] MEDS: DiphenhydrAMINE HCL 25 MG CAPSULE PO SCH (20:14)
[2017-04-14] MEDS: OLANZapine 10 MG TABLET PO SCH (20:14)
[2017-04-15 08:00] VITALS: BP 102/66
[2017-04-15] MEDS: CHOLECALCIFEROL (VIT D3) 1,000 UNITS TABLET PO SCH (08:26)
[2017-04-15] MEDS: FLUoxetine HCL 20 MG CAPSULE PO SCH (08:26)
[2017-04-15 17:06] VITALS: BP 111/69
[2017-04-15] MEDS: OLANZapine 10 MG TABLET PO SCH (20:38)
[2017-04-15] MEDS: DiphenhydrAMINE HCL 25 MG CAPSULE PO SCH (20:38)
[2017-04-16 08:00] VITALS: BP 108/63
[2017-04-16] MEDS: FLUoxetine HCL 20 MG CAPSULE PO SCH (09:08)
[2017-04-16] MEDS: CHOLECALCIFEROL (VIT D3) 1,000 UNITS TABLET PO SCH (09:08)
[2017-04-16] MEDS: OLANZapine 10 MG TABLET PO SCH (20:11)
[2017-04-16] MEDS: DiphenhydrAMINE HCL 25 MG CAPSULE PO SCH (20:11)
[2017-04-16 21:07] VITALS: BP 108/64
[2017-04-17 01:45] VITALS: BP 118/70
[2017-04-17 08:00] VITALS: BP 118/95
[2017-04-17] MEDS: FLUoxetine HCL 20 MG CAPSULE PO SCH (10:05)
[2017-04-17] MEDS: MULTIVITAMINS WITH IRON TABLET PO SCH (10:06)
[2017-04-17] MEDS: CHOLECALCIFEROL (VIT D3) 1,000 UNITS TABLET PO SCH (10:06)
[2017-04-17 16:32] VITALS: BP 108/69
[2017-04-17] MEDS: OLANZapine 10 MG TABLET PO SCH (20:28)
[2017-04-17] MEDS: DiphenhydrAMINE HCL 25 MG CAPSULE PO SCH (20:28)
[2017-04-18 08:12] VITALS: BP 116/80
[2017-04-18] MEDS: MULTIVITAMINS WITH IRON TABLET PO SCH (08:22)
[2017-04-18] MEDS: FLUoxetine HCL 20 MG CAPSULE PO SCH (08:22)
[2017-04-18] MEDS: CHOLECALCIFEROL (VIT D3) 1,000 UNITS TABLET PO SCH (08:22)
[2017-04-18 17:10] VITALS: BP 106/66
[2017-04-18] MEDS: DiphenhydrAMINE HCL 25 MG CAPSULE PO SCH (20:21)
[2017-04-18] MEDS: OLANZapine 10 MG TABLET PO SCH (20:21)
[2017-04-19 00:52] VITALS: BP 113/67
[2017-04-19 08:05] VITALS: BP 115/75
[2017-04-19] MEDS ORDERED: INFLUENZA VIRUS VACCINE QVS 2017-18 (3YR+)/PF 60 MCG/0.5 ML SYRINGE IM ONE (08:15)
[2017-04-19] MEDS: CHOLECALCIFEROL (VIT D3) 1,000 UNITS TABLET PO SCH (08:23)
[2017-04-19] MEDS: FLUoxetine HCL 20 MG CAPSULE PO SCH (08:23)
[2017-04-19] MEDS: MULTIVITAMINS WITH IRON TABLET PO SCH (08:23)
[2017-04-19] MEDS ORDERED: MVITFE PO (11:21)
== END 2017-04-19 15:45 | disposition home or self-care (01) | DRG 885 ==
LOC: EMS 07:19 → 3EX 12:18
PROVIDERS: ADMIT Psychiatry & Neurology Child & Adolescent Psychiatry
DX: F20.0 Paranoid schizophrenia (principal); E66.01 Morbid (severe) obesity due to excess calories; F15.20 Other stimulant dependence, uncomplicated; E55.9 Vitamin D deficiency, unspecified; F11.90 Opioid use, unspecified, uncomplicated; F17.200 Nicotine dependence, unspecified, uncomplicated; G47.00 Insomnia, unspecified; K59.00 Constipation, unspecified; Z71.6 Tobacco abuse counseling; Z79.899 Other long term (current) drug therapy; Z91.19 Patient's noncompliance with other medical treatment and regimen; Z88.8 Allergy status to other drugs, medicaments and biological substances
CPT/HCPCS: 82962; 84439; 84443; 99285; G0480

== ENCOUNTER 2017-10-21 21:29 | Emergency (ER) | payer MEDICARE, MEDICAID ==
[~2017-10-21] VITALS: Ht 175.3 cm; Wt 120.0 kg
[~2017-10-21 21:29] MED LIST changes: -DIPH25 PO; +OLAN10TA3 PO; +OLAN10TA6 PO; +OLAN20TA2 PO; -OLAN7.5T2 PO; -VITAD1000 PO
[2017-10-21 23:20] LABS: BASOPHILS % (AUTO) 0.8 % (0.0-2.0); EOSINOPHILS % (AUTO) 1.5 % (1.0-6.0); HEMATOCRIT 30.6 % (36-46); HEMOGLOBIN 10.2 g/dL (12.0-16.0); LYMPHOCYTES # (AUTO) 3.5 K/uL (1.0-4.8); MEAN CORPUSCULAR HEMOGLOBIN 26.8 pg (26.0-34.0); MEAN CORPUSCULAR HGB CONC 33.3 G/dL (31.0-37.0); MEAN CORPUSCULAR VOLUME 81 fL (80-100); MONOCYTES # (AUTO) 1.1 K/uL (0.1-1.0); MONOCYTES % (AUTO) 11.1 % (2.0-9.0); NEUTROPHILS # (AUTO) 5.4 K/uL (1.8-7.7); NEUTROPHILS % (AUTO) 52.6 % (40.0-70.0); PLATELET COUNT (AUTO) 367 K/uL (150-450); RED CELL DISTRIBUTION WIDTH 16.8 % (11.5-14.5)
[2017-10-21 23:33] LABS: ANION GAP 11 mmol/L (8-16); CALCIUM, TOTAL 8.9 mg/dL (8.8-10.5); CARBON DIOXIDE 25 mmol/L (22-29); CHLORIDE 107 mmol/L (98-107); CREATININE 0.93 mg/dL (0.60-1.30); GLOMERULAR FILTR. RATE CALC > 60 mL/min (>60); GLUCOSE,RANDOM 81 mg/dL (70-110); POTASSIUM 3.5 mmol/L (3.5-5.1); SODIUM SERUM 143 mmol/L (136-145); UREA NITROGEN, BLOOD 16 mg/dL (7-18)
[2017-10-21 23:40] LABS: ALANINE AMINOTRANSFERASE 31 U/L (12-78); ALBUMIN 3.4 g/dL (3.4-5.0); ALKALINE PHOSPHATASE 53 U/L (46-116); ASPARTATE AMINOTRANSFERASE 47 U/L (15-37); BILIRUBIN,TOTAL 0.6 mg/dL (0.1-1.0); TOTAL PROTEIN, SERUM 7.7 g/dL (6.4-8.2)
[2017-10-22] MEDS ORDERED: ACETAMINOPHEN 500 MG TABLET PO ONE (00:15)
[2017-10-22] MEDS ORDERED: HALOPERIDOL LACTATE 5 MG/ML VIAL IM ONE (00:15)
[2017-10-22] MEDS ORDERED: LORazepam 2 MG/ML VIAL IM ONE (00:15)
[2017-10-22 06:05] VITALS: BP 111/58
== END 2017-10-22 06:20 | disposition home or self-care (01) ==
LOC: EMS 21:31
DX: F25.9 Schizoaffective disorder, unspecified (principal); F17.210 Nicotine dependence, cigarettes, uncomplicated; F19.90 Other psychoactive substance use, unspecified, uncomplicated; Z91.018 Allergy to other foods
CPT/HCPCS: 36415; 80053; 85025; 96372; 99284; G0480; J1630; J2060

== ENCOUNTER 2017-11-02 14:49 | Inpatient (IN) | payer MEDICARE, MEDICAID ==
[~2017-11-02] VITALS: Ht 175.3 cm; Wt 110.0 kg
[~2017-11-02 14:49] MED LIST changes: +FERR-89 PO; -OLAN10TA6 PO; -OLAN20TA2 PO
[2017-11-02 16:09] LABS: BASOPHILS % (AUTO) 0.6 % (0.0-2.0); EOSINOPHILS % (AUTO) 1.9 % (1.0-6.0); HEMOGLOBIN 10.7 g/dL (12.0-16.0); LYMPHOCYTES # (AUTO) 2.2 K/uL (1.0-4.8); LYMPHOCYTES % (AUTO) 20.8 % (22.0-44.0); MEAN CORPUSCULAR HGB CONC 33.4 G/dL (31.0-37.0); MEAN CORPUSCULAR VOLUME 81 fL (80-100); MONOCYTES # (AUTO) 0.9 K/uL (0.1-1.0); MONOCYTES % (AUTO) 9.1 % (2.0-9.0); NEUTROPHILS % (AUTO) 67.6 % (40.0-70.0); PLATELET COUNT (AUTO) 401 K/uL (150-450); RED BLOOD CELL COUNT(AUTO) 3.96 MIL/uL (4.00-5.20); RED CELL DISTRIBUTION WIDTH 17.1 % (11.5-14.5)
[2017-11-02 16:18] LABS: ANION GAP 9 mmol/L (8-16); CALCIUM, TOTAL 8.9 mg/dL (8.8-10.5); CARBON DIOXIDE 26 mmol/L (22-29); CHLORIDE 104 mmol/L (98-107); CREATININE 0.83 mg/dL (0.60-1.30); GLOMERULAR FILTR. RATE CALC > 60 mL/min (>60); GLUCOSE,RANDOM 76 mg/dL (70-110); POTASSIUM 3.8 mmol/L (3.5-5.1); SODIUM SERUM 139 mmol/L (136-145); UREA NITROGEN, BLOOD 11 mg/dL (7-18)
[2017-11-02 16:23] LABS: ALANINE AMINOTRANSFERASE 30 U/L (12-78); ALBUMIN 3.3 g/dL (3.4-5.0); ALKALINE PHOSPHATASE 56 U/L (46-116); ASPARTATE AMINOTRANSFERASE 29 U/L (15-37); BILIRUBIN,TOTAL 0.7 mg/dL (0.1-1.0); TOTAL PROTEIN, SERUM 7.5 g/dL (6.4-8.2)
[2017-11-02 19:11] LABS: AMPHET/METH SCREEN,URINE POSITIVE (NEGATIVE); BARBITURATE SCREEN, URINE NEGATIVE (NEGATIVE); BENZODIAZEPINES SCREEN,URINE NEGATIVE (NEGATIVE); CANNABINOID SCREEN,URINE NEGATIVE (NEGATIVE); COCAINE SCREEN,URINE NEGATIVE (NEGATIVE); METHADONE SCREEN, URINE NEGATIVE (NEGATIVE); OPIATE SCREEN,URINE NEGATIVE (NEGATIVE)
[2017-11-02 19:12] LABS: PHENCYCLIDINE SCREEN,URINE NEGATIVE (NEGATIVE)
[2017-11-02] MEDS ORDERED: OLANZapine 5 MG TABLET PO ONE (20:00)
[2017-11-02] MEDS ORDERED: DiphenhydrAMINE HCL 25 MG CAPSULE PO ONE (20:30)
[2017-11-02] MEDS ORDERED: HALOPERIDOL 5 MG TABLET PO PRN (23:30)
[2017-11-02] MEDS ORDERED: ZOLPIDEM TARTRATE 10 MG TABLET PO PRN (23:30)
[2017-11-02] MEDS ORDERED: LORazepam 2 MG TABLET PO PRN (23:30)
[2017-11-03 06:38] VITALS: BP 128/82
[2017-11-03] MEDS ORDERED: NICOTINE 14 MG/24 HOUR PATCH TD PRN (07:30)
[2017-11-03] MEDS ORDERED: ACETAMINOPHEN 325 MG TABLET PO PRN (07:30)
[2017-11-03] MEDS ORDERED: MAGNESIUM HYDROXIDE SUSPENSION 30 ML UDCUP PO PRN (07:30)
[2017-11-03] MEDS ORDERED: PETROLATUM,WHITE 71 GM JELLY TP PRN (07:30)
[2017-11-03] MEDS ORDERED: LOPERAMIDE HCL 2 MG CAPSULE PO PRN (07:30)
[2017-11-03] MEDS ORDERED: ALBUTEROL SULFATE HFA 90 MCG/PUFF 8 GM INHALER IH PRN (07:30)
[2017-11-03] MEDS ORDERED: CloNIDine HCL 0.1 MG TABLET PO PRN (07:30)
[2017-11-03] MEDS ORDERED: IBUPROFEN 400 MG TABLET PO PRN (07:30)
[2017-11-03] MEDS ORDERED: GuaiFENesin/D-METHORPHAN [SUGAR-FREE] 200-20MG/10 ML SYRUP UDCUP PO PRN (07:30)
[2017-11-03] MEDS ORDERED: MAG HYDROX/AL HYDROX/SIMETH ES 30 ML SUSPENSION UDCUP PO PRN (07:30)
[2017-11-03] MEDS ORDERED: ONDANSETRON HCL 4 MG TABLET PO PRN (07:30)
[2017-11-03] MEDS ORDERED: DOCUSATE SODIUM 100 MG CAPSULE PO PRN (07:30)
[2017-11-03 08:14] VITALS: BP 101/61
[2017-11-03 16:16] VITALS: BP 120/70
[2017-11-03] MEDS: OLANZapine 10 MG TABLET PO SCH (20:36)
[2017-11-04 02:07] VITALS: BP 138/73
[2017-11-04 08:18] VITALS: BP 104/65
[2017-11-04] MEDS: FLUoxetine HCL 20 MG CAPSULE PO SCH (08:31)
[2017-11-04] MEDS ORDERED: TERBINAFINE HCL 1% 30 GM CREAM TP SCH (09:00)
[2017-11-04 16:12] VITALS: BP 101/64
[2017-11-04] MEDS: FERROUS SULFATE 325 MG EC TABLET PO SCH (16:43)
[2017-11-04] MEDS: OLANZapine 10 MG TABLET PO SCH (20:37)
[2017-11-05 01:34] VITALS: BP 107/62
[2017-11-05] MEDS: FERROUS SULFATE 325 MG EC TABLET PO SCH ×3 (06:33→17:16)
[2017-11-05 08:24] VITALS: BP 112/66
[2017-11-05 08:48] LABS: HEMOGLOBIN A1C 5.5 % (4.5-6.2)
[2017-11-05] MEDS: FLUoxetine HCL 20 MG CAPSULE PO SCH (09:03)
[2017-11-05 09:22] LABS: CHOL/HDL RATIO 2.9 (3.9-5.7); THYROID STIMULATING HORMONE 0.67 uIU/mL (0.36-3.74)
[2017-11-05 16:14] VITALS: BP 103/68
[2017-11-05] MEDS: OLANZapine 10 MG TABLET PO SCH (20:26)
[2017-11-06 01:14] VITALS: BP 112/72
[2017-11-06] MEDS: FERROUS SULFATE 325 MG EC TABLET PO SCH ×3 (06:05→16:55)
[2017-11-06 08:14] VITALS: BP 108/63
[2017-11-06] MEDS: FLUoxetine HCL 20 MG CAPSULE PO SCH (08:36)
[2017-11-06 16:06] VITALS: BP 102/68
[2017-11-06] MEDS: OLANZapine 10 MG TABLET PO SCH (20:01)
[2017-11-07 06:18] VITALS: BP 116/60
[2017-11-07] MEDS: FERROUS SULFATE 325 MG EC TABLET PO SCH ×3 (06:31→16:57)
[2017-11-07] MEDS: FLUoxetine HCL 20 MG CAPSULE PO SCH (08:23)
[2017-11-07] MEDS: OMEPRAZOLE 20 MG CAPSULE PO SCH (08:23)
[2017-11-07 08:28] VITALS: BP 105/63
[2017-11-07 16:21] VITALS: BP 101/63
[2017-11-07] MEDS: OLANZapine 10 MG TABLET PO SCH (20:11)
[2017-11-08 00:22] VITALS: BP 107/64
[2017-11-08] MEDS: FERROUS SULFATE 325 MG EC TABLET PO SCH ×3 (07:11→17:02)
[2017-11-08] MEDS: FLUoxetine HCL 20 MG CAPSULE PO SCH (08:58)
[2017-11-08] MEDS: OMEPRAZOLE 20 MG CAPSULE PO SCH (08:58)
[2017-11-08 09:08] VITALS: BP 105/68
[2017-11-08 16:50] VITALS: BP 109/59
[2017-11-08] MEDS: OLANZapine 10 MG TABLET PO SCH (20:01)
[2017-11-09 05:10] VITALS: BP 110/68
[2017-11-09] MEDS: FERROUS SULFATE 325 MG EC TABLET PO SCH (06:20)
[2017-11-09] MEDS: FLUoxetine HCL 20 MG CAPSULE PO SCH (08:31)
[2017-11-09] MEDS: OMEPRAZOLE 20 MG CAPSULE PO SCH (08:31)
[2017-11-09 08:36] VITALS: BP 120/68
== END 2017-11-09 10:50 | disposition home or self-care (01) | DRG 885 ==
LOC: EDBD → EDUNIT# 14:49 → EMS 14:56 → UNDOADMIN 23:52 → B2X 23:52
PROVIDERS: ADMIT Psychiatry & Neurology Psychiatry; ATTEND Psychiatry & Neurology Psychiatry
DX: F25.0 Schizoaffective disorder, bipolar type (principal); R45.851 Suicidal ideations; F17.210 Nicotine dependence, cigarettes, uncomplicated; F15.10 Other stimulant abuse, uncomplicated; D64.9 Anemia, unspecified; K59.00 Constipation, unspecified; K21.9 Gastro-esophageal reflux disease without esophagitis; E66.9 Obesity, unspecified; Z88.8 Allergy status to other drugs, medicaments and biological substances; Z59.0 Homelessness; Z68.35 Body mass index [BMI] 35.0-35.9, adult
CPT/HCPCS: 83036; 84443; 87081; 99285; G0480

== ENCOUNTER 2017-12-21 02:29 | Emergency (ER) | payer MEDICARE, OTHER ==
[~2017-12-21] VITALS: Ht 172.7 cm; Wt 90.9 kg
[~2017-12-21 02:29] MED LIST changes: -DSS100 PO
[2017-12-21 03:25] LABS: BASOPHILS % (AUTO) 0.7 % (0.0-2.0); HEMATOCRIT 34.1 % (36-46); HEMOGLOBIN 11.4 g/dL (12.0-16.0); LYMPHOCYTES # (AUTO) 2.3 K/uL (1.0-4.8); LYMPHOCYTES % (AUTO) 21.4 % (22.0-44.0); MEAN CORPUSCULAR HEMOGLOBIN 28.5 pg (26.0-34.0); MEAN CORPUSCULAR HGB CONC 33.6 G/dL (31.0-37.0); MEAN CORPUSCULAR VOLUME 85 fL (80-100); MONOCYTES % (AUTO) 9.2 % (2.0-9.0); NEUTROPHILS # (AUTO) 7.3 K/uL (1.8-7.7); NEUTROPHILS % (AUTO) 67.7 % (40.0-70.0); PLATELET COUNT (AUTO) 384 K/uL (150-450); RED BLOOD CELL COUNT(AUTO) 4.02 MIL/uL (4.00-5.20); RED CELL DISTRIBUTION WIDTH 16.7 % (11.5-14.5)
[2017-12-21 03:32] LABS: ALANINE AMINOTRANSFERASE 61 U/L (12-78); ALBUMIN 3.7 g/dL (3.4-5.0); ALKALINE PHOSPHATASE 76 U/L (46-116); ANION GAP 9 mmol/L (8-16); ASPARTATE AMINOTRANSFERASE 92 U/L (15-37); BILIRUBIN,TOTAL 0.9 mg/dL (0.1-1.0); CALCIUM, TOTAL 8.7 mg/dL (8.8-10.5); CARBON DIOXIDE 27 mmol/L (22-29); CHLORIDE 102 mmol/L (98-107); CREATININE 1.06 mg/dL (0.60-1.30); GLOMERULAR FILTR. RATE CALC > 60 mL/min (>60); GLUCOSE,RANDOM 104 mg/dL (70-110); SODIUM SERUM 138 mmol/L (136-145); TOTAL PROTEIN, SERUM 8.2 g/dL (6.4-8.2); UREA NITROGEN, BLOOD 15 mg/dL (7-18)
[2017-12-21 03:34] LABS: POTASSIUM 2.6 mmol/L (3.5-5.1)
[2017-12-21] MEDS ORDERED: POTASSIUM CHLORIDE 10% 40 MEQ/30 ML LIQUID UDCUP PO ONE ×2 (03:45→04:15)
[2017-12-21] MEDS ORDERED: POTASSIUM CHLORIDE 10% 40 MEQ/30 ML LIQUID UDCUP PO SCH (04:15)
[2017-12-21 05:47] VITALS: BP 111/69
== END 2017-12-21 05:53 | disposition home or self-care (01) ==
LOC: EMS 02:29
DX: F25.9 Schizoaffective disorder, unspecified (principal); E87.6 Hypokalemia; F17.210 Nicotine dependence, cigarettes, uncomplicated; F15.90 Other stimulant use, unspecified, uncomplicated; Z91.018 Allergy to other foods; Z79.899 Other long term (current) drug therapy
CPT/HCPCS: 36415; 80053; 84132; 85025; 99284; 99406; G0480

== ENCOUNTER 2017-12-26 17:23 | Emergency (ER) | payer MEDICARE, OTHER ==
[~2017-12-26] VITALS: Ht 177.8 cm; Wt 90.9 kg
[2017-12-26 17:57] LABS: BASOPHILS % (AUTO) 0.8 % (0.0-2.0); HEMATOCRIT 33.3 % (36-46); LYMPHOCYTES % (AUTO) 25.7 % (22.0-44.0); MEAN CORPUSCULAR HEMOGLOBIN 27.8 pg (26.0-34.0); MEAN CORPUSCULAR HGB CONC 33.1 G/dL (31.0-37.0); MEAN CORPUSCULAR VOLUME 84 fL (80-100); MONOCYTES # (AUTO) 0.8 K/uL (0.1-1.0); MONOCYTES % (AUTO) 10.1 % (2.0-9.0); NEUTROPHILS # (AUTO) 4.8 K/uL (1.8-7.7); NEUTROPHILS % (AUTO) 62.4 % (40.0-70.0); PLATELET COUNT (AUTO) 345 K/uL (150-450); RED BLOOD CELL COUNT(AUTO) 3.96 MIL/uL (4.00-5.20); RED CELL DISTRIBUTION WIDTH 16.5 % (11.5-14.5)
[2017-12-26 18:09] LABS: ANION GAP 7 mmol/L (8-16); CALCIUM, TOTAL 8.8 mg/dL (8.8-10.5); CARBON DIOXIDE 28 mmol/L (22-29); CHLORIDE 106 mmol/L (98-107); CREATININE 0.76 mg/dL (0.60-1.30); GLOMERULAR FILTR. RATE CALC > 60 mL/min (>60); GLUCOSE,RANDOM 91 mg/dL (70-110); POTASSIUM 3.6 mmol/L (3.5-5.1); SODIUM SERUM 141 mmol/L (136-145); UREA NITROGEN, BLOOD 10 mg/dL (7-18)
[2017-12-26 18:15] LABS: ALANINE AMINOTRANSFERASE 33 U/L (12-78); ALBUMIN 3.4 g/dL (3.4-5.0); ALKALINE PHOSPHATASE 61 U/L (46-116); ASPARTATE AMINOTRANSFERASE 30 U/L (15-37); BILIRUBIN,TOTAL 0.4 mg/dL (0.1-1.0); TOTAL PROTEIN, SERUM 7.7 g/dL (6.4-8.2)
[2017-12-26 19:43] VITALS: BP 131/93
== END 2017-12-26 20:18 | disposition home or self-care (01) ==
LOC: EMS 17:25
DX: F25.9 Schizoaffective disorder, unspecified (principal); F15.10 Other stimulant abuse, uncomplicated; F17.210 Nicotine dependence, cigarettes, uncomplicated; Z91.02 Food additives allergy status; Z79.899 Other long term (current) drug therapy
CPT/HCPCS: 36415; 80053; 85025; 99284; G0480

== ENCOUNTER 2018-01-02 12:43 | Inpatient (IN) | payer MEDICARE, MEDICAID ==
[~2018-01-02] VITALS: Ht 177.8 cm; Wt 107.0 kg
[2018-01-02 13:50] LABS: BASOPHILS % (AUTO) 0.7 % (0.0-2.0); EOSINOPHILS % (AUTO) 0.3 % (1.0-6.0); HEMATOCRIT 34.5 % (36-46); HEMOGLOBIN 11.6 g/dL (12.0-16.0); LYMPHOCYTES # (AUTO) 1.6 K/uL (1.0-4.8); LYMPHOCYTES % (AUTO) 16.6 % (22.0-44.0); MEAN CORPUSCULAR HEMOGLOBIN 27.9 pg (26.0-34.0); MEAN CORPUSCULAR HGB CONC 33.7 G/dL (31.0-37.0); MEAN CORPUSCULAR VOLUME 83 fL (80-100); MONOCYTES # (AUTO) 0.7 K/uL (0.1-1.0); MONOCYTES % (AUTO) 7.4 % (2.0-9.0); NEUTROPHILS # (AUTO) 7.1 K/uL (1.8-7.7); PLATELET COUNT (AUTO) 379 K/uL (150-450); RED BLOOD CELL COUNT(AUTO) 4.17 MIL/uL (4.00-5.20); RED CELL DISTRIBUTION WIDTH 16.1 % (11.5-14.5)
[2018-01-02 14:32] LABS: CHLORIDE 104 mmol/L (98-107); POTASSIUM 3.6 mmol/L (3.5-5.1); SODIUM SERUM 139 mmol/L (136-145)
[2018-01-02 14:42] LABS: AMPHET/METH SCREEN,URINE POSITIVE (NEGATIVE); BARBITURATE SCREEN, URINE NEGATIVE (NEGATIVE); BENZODIAZEPINES SCREEN,URINE NEGATIVE (NEGATIVE); CANNABINOID SCREEN,URINE NEGATIVE (NEGATIVE); COCAINE SCREEN,URINE NEGATIVE (NEGATIVE); METHADONE SCREEN, URINE NEGATIVE (NEGATIVE); OPIATE SCREEN,URINE NEGATIVE (NEGATIVE)
[2018-01-02 14:44] LABS: PHENCYCLIDINE SCREEN,URINE NEGATIVE (NEGATIVE)
[2018-01-02 14:54] LABS: ALANINE AMINOTRANSFERASE 37 U/L (12-78); ALBUMIN 3.7 g/dL (3.4-5.0); ALKALINE PHOSPHATASE 65 U/L (46-116); ANION GAP 10 mmol/L (8-16); ASPARTATE AMINOTRANSFERASE 43 U/L (15-37); BILIRUBIN,TOTAL 0.5 mg/dL (0.1-1.0); CALCIUM, TOTAL 8.9 mg/dL (8.8-10.5); CARBON DIOXIDE 25 mmol/L (22-29); CREATININE 0.93 mg/dL (0.60-1.30); GLOMERULAR FILTR. RATE CALC > 60 mL/min (>60); GLUCOSE,RANDOM 90 mg/dL (70-110); HCG,QUANTITATIVE < 1 mIU/mL (0-6); TOTAL PROTEIN, SERUM 8.2 g/dL (6.4-8.2); UREA NITROGEN, BLOOD 8 mg/dL (7-18)
[2018-01-02] MEDS ORDERED: DiphenhydrAMINE HCL 50 MG/ML VIAL IM ONE (15:00)
[2018-01-02] MEDS ORDERED: LORazepam 2 MG/ML VIAL IM ONE (15:00)
[2018-01-02] MEDS ORDERED: HALOPERIDOL LACTATE 5 MG/ML VIAL IM ONE (15:00)
[2018-01-02] MEDS ORDERED: HALOPERIDOL 5 MG TABLET PO PRN (15:30)
[2018-01-02] MEDS ORDERED: ZOLPIDEM TARTRATE 10 MG TABLET PO PRN (15:30)
[2018-01-02] MEDS ORDERED: LORazepam 2 MG TABLET PO PRN (15:30)
[2018-01-02 20:18] VITALS: BP 103/65
[2018-01-02] MEDS ORDERED: MAGNESIUM HYDROXIDE SUSPENSION 30 ML UDCUP PO PRN (21:45)
[2018-01-02] MEDS ORDERED: LOPERAMIDE HCL 2 MG CAPSULE PO PRN (21:45)
[2018-01-02] MEDS ORDERED: ALBUTEROL SULFATE HFA 90 MCG/PUFF 8 GM INHALER IH PRN (21:45)
[2018-01-02] MEDS ORDERED: ACETAMINOPHEN 325 MG TABLET PO PRN (21:45)
[2018-01-02] MEDS ORDERED: PETROLATUM,WHITE 71 GM JELLY TP PRN (21:45)
[2018-01-02] MEDS ORDERED: DOCUSATE SODIUM 100 MG CAPSULE PO PRN (21:45)
[2018-01-02] MEDS ORDERED: MAG HYDROX/AL HYDROX/SIMETH ES 30 ML SUSPENSION UDCUP PO PRN (21:45)
[2018-01-02] MEDS ORDERED: IBUPROFEN 400 MG TABLET PO PRN (21:45)
[2018-01-02] MEDS ORDERED: CloNIDine HCL 0.1 MG TABLET PO PRN (21:45)
[2018-01-02] MEDS ORDERED: GuaiFENesin/D-METHORPHAN [SUGAR-FREE] 200-20MG/10 ML SYRUP UDCUP PO PRN (21:45)
[2018-01-02] MEDS ORDERED: NICOTINE 14 MG/24 HOUR PATCH TD PRN (21:45)
[2018-01-02] MEDS ORDERED: ONDANSETRON HCL 4 MG TABLET PO PRN (21:45)
[2018-01-03 06:09] VITALS: BP 101/62
[2018-01-03] MEDS: FERROUS SULFATE 325 MG EC TABLET PO SCH ×3 (07:03→17:11)
[2018-01-03 08:30] VITALS: BP 108/66
[2018-01-03] MEDS: OMEPRAZOLE 20 MG CAPSULE PO SCH (09:00)
[2018-01-03] MEDS: OLANZapine 10 MG TABLET PO SCH (20:33)
[2018-01-04 06:13] VITALS: BP 106/72
[2018-01-04] MEDS: FERROUS SULFATE 325 MG EC TABLET PO SCH ×3 (06:47→17:13)
[2018-01-04 08:28] VITALS: BP 117/70
[2018-01-04] MEDS: FLUoxetine HCL 20 MG CAPSULE PO SCH (08:44)
[2018-01-04] MEDS: OMEPRAZOLE 20 MG CAPSULE PO SCH (08:44)
[2018-01-04 08:55] LABS: CHOLESTEROL 135 mg/dL (131-200); HCG,QUANTITATIVE < 1 mIU/mL (0-6); HDL CHOLESTEROL 68 mg/dL (40-60); LDL CHOL (CALC.) 58 mg/dL (0-130); THYROID STIMULATING HORMONE 0.69 uIU/mL (0.36-3.74); TRIGLYCERIDES 43 mg/dL (15-150)
[2018-01-04 09:19] LABS: HEMOGLOBIN A1C 5.4 % (4.5-6.2)
[2018-01-04 16:00] VITALS: BP 103/74
[2018-01-04] MEDS: OLANZapine 10 MG TABLET PO SCH (20:40)
[2018-01-05] MEDS: FERROUS SULFATE 325 MG EC TABLET PO SCH ×3 (06:33→16:59)
[2018-01-05 06:34] VITALS: BP 110/68
[2018-01-05 08:23] VITALS: BP 116/74
[2018-01-05] MEDS: OMEPRAZOLE 20 MG CAPSULE PO SCH (08:44)
[2018-01-05] MEDS: FLUoxetine HCL 20 MG CAPSULE PO SCH (08:44)
[2018-01-05 16:10] VITALS: BP 118/78
[2018-01-05] MEDS: OLANZapine 10 MG TABLET PO SCH (20:16)
[2018-01-06 01:23] VITALS: BP 117/76
[2018-01-06] MEDS: FERROUS SULFATE 325 MG EC TABLET PO SCH ×3 (07:04→16:30)
[2018-01-06] MEDS: OMEPRAZOLE 20 MG CAPSULE PO SCH (09:12)
[2018-01-06] MEDS: FLUoxetine HCL 20 MG CAPSULE PO SCH (09:12)
[2018-01-06 17:37] VITALS: BP 104/62
[2018-01-06] MEDS: OLANZapine 10 MG TABLET PO SCH (20:43)
[2018-01-07 06:16] VITALS: BP 110/68
[2018-01-07] MEDS: FERROUS SULFATE 325 MG EC TABLET PO SCH ×3 (06:48→16:39)
[2018-01-07 08:12] VITALS: BP 117/63
[2018-01-07] MEDS: OMEPRAZOLE 20 MG CAPSULE PO SCH (08:31)
[2018-01-07] MEDS: FLUoxetine HCL 20 MG CAPSULE PO SCH (08:31)
[2018-01-07 16:34] VITALS: BP 117/68
[2018-01-07] MEDS: OLANZapine 10 MG TABLET PO SCH (20:36)
[2018-01-08] MEDS: FERROUS SULFATE 325 MG EC TABLET PO SCH ×3 (06:54→17:01)
[2018-01-08 07:26] VITALS: BP 112/86
[2018-01-08 08:26] VITALS: BP 105/62
[2018-01-08] MEDS: FLUoxetine HCL 20 MG CAPSULE PO SCH (08:29)
[2018-01-08] MEDS: OMEPRAZOLE 20 MG CAPSULE PO SCH (08:29)
[2018-01-08 16:34] VITALS: BP 110/61
[2018-01-08] MEDS: OLANZapine 10 MG TABLET PO SCH (20:21)
[2018-01-09 00:53] VITALS: BP 105/67
[2018-01-09] MEDS: FERROUS SULFATE 325 MG EC TABLET PO SCH ×3 (06:05→16:35)
[2018-01-09 08:25] VITALS: BP 108/68
[2018-01-09] MEDS: FLUoxetine HCL 20 MG CAPSULE PO SCH (08:50)
[2018-01-09] MEDS: OMEPRAZOLE 20 MG CAPSULE PO SCH (08:50)
[2018-01-09 17:24] VITALS: BP 98/75
[2018-01-09] MEDS: OLANZapine 10 MG TABLET PO SCH (20:35)
[2018-01-10 02:06] VITALS: BP 112/65
[2018-01-10] MEDS: FERROUS SULFATE 325 MG EC TABLET PO SCH ×3 (06:29→16:37)
[2018-01-10 08:10] VITALS: BP 106/69
[2018-01-10] MEDS: FLUoxetine HCL 20 MG CAPSULE PO SCH (08:49)
[2018-01-10] MEDS: OMEPRAZOLE 20 MG CAPSULE PO SCH (08:49)
[2018-01-10 16:06] VITALS: BP 104/76
[2018-01-10] MEDS: OLANZapine 10 MG TABLET PO SCH (20:34)
[2018-01-11 02:29] VITALS: BP 102/70
[2018-01-11] MEDS: FERROUS SULFATE 325 MG EC TABLET PO SCH ×3 (06:40→16:32)
[2018-01-11 08:14] VITALS: BP 109/69
[2018-01-11] MEDS: FLUoxetine HCL 20 MG CAPSULE PO SCH (08:40)
[2018-01-11] MEDS: OMEPRAZOLE 20 MG CAPSULE PO SCH (08:40)
[2018-01-11 16:08] VITALS: BP 108/58
[2018-01-11] MEDS ORDERED: OLAN10TA3 PO (18:35)
[2018-01-11] MEDS: OLANZapine 10 MG TABLET PO SCH (20:36)
[2018-01-12 00:46] VITALS: BP 102/69
[2018-01-12] MEDS: FERROUS SULFATE 325 MG EC TABLET PO SCH ×2 (06:24→11:49)
[2018-01-12 08:08] VITALS: BP 112/66
[2018-01-12] MEDS: FLUoxetine HCL 20 MG CAPSULE PO SCH (08:33)
[2018-01-12] MEDS: OMEPRAZOLE 20 MG CAPSULE PO SCH (08:33)
== END 2018-01-12 13:33 | disposition home or self-care (01) | DRG 885 ==
LOC: EMS 12:45 → B2X 17:15
PROVIDERS: ADMIT Psychiatry & Neurology Psychiatry; ATTEND Psychiatry & Neurology Psychiatry
DX: F25.0 Schizoaffective disorder, bipolar type (principal); R45.851 Suicidal ideations; Z59.0 Homelessness; Z91.19 Patient's noncompliance with other medical treatment and regimen; D64.9 Anemia, unspecified; F41.9 Anxiety disorder, unspecified; F17.210 Nicotine dependence, cigarettes, uncomplicated; K21.9 Gastro-esophageal reflux disease without esophagitis; K59.00 Constipation, unspecified; F15.10 Other stimulant abuse, uncomplicated; E66.9 Obesity, unspecified; R74.0 Nonspecific elevation of levels of transaminase and lactic acid dehydrogenase [LDH]; Z71.6 Tobacco abuse counseling
CPT/HCPCS: 83036; 84443; 96372; 99406; G0480; J1200; J1630; J2060

== ENCOUNTER 2018-01-16 09:36 | Inpatient (IN) | payer MEDICARE, MEDICAID ==
[~2018-01-16] VITALS: Ht 175.3 cm; Wt 106.1 kg
[2018-01-16 10:38] LABS: BASOPHILS % (AUTO) 0.4 % (0.0-2.0); EOSINOPHILS % (AUTO) 0.6 % (1.0-6.0); HEMATOCRIT 35.7 % (36-46); LYMPHOCYTES # (AUTO) 2.6 K/uL (1.0-4.8); LYMPHOCYTES % (AUTO) 20.3 % (22.0-44.0); MEAN CORPUSCULAR HGB CONC 33.6 G/dL (31.0-37.0); MEAN CORPUSCULAR VOLUME 83 fL (80-100); MONOCYTES # (AUTO) 1.2 K/uL (0.1-1.0); MONOCYTES % (AUTO) 9.5 % (2.0-9.0); NEUTROPHILS # (AUTO) 8.9 K/uL (1.8-7.7); NEUTROPHILS % (AUTO) 69.2 % (40.0-70.0); PLATELET COUNT (AUTO) 445 K/uL (150-450); RED CELL DISTRIBUTION WIDTH 15.8 % (11.5-14.5)
[2018-01-16 11:09] LABS: ANION GAP 14 mmol/L (8-16); CARBON DIOXIDE 24 mmol/L (22-29); CHLORIDE 106 mmol/L (98-107); CREATININE 0.89 mg/dL (0.60-1.30); GLOMERULAR FILTR. RATE CALC > 60 mL/min (>60); GLUCOSE,RANDOM 81 mg/dL (70-110); POTASSIUM 3.4 mmol/L (3.5-5.1); SODIUM SERUM 144 mmol/L (136-145); UREA NITROGEN, BLOOD 15 mg/dL (7-18)
[2018-01-16 11:15] LABS: ALANINE AMINOTRANSFERASE 58 U/L (12-78); ALBUMIN 3.6 g/dL (3.4-5.0); ALKALINE PHOSPHATASE 66 U/L (46-116); ASPARTATE AMINOTRANSFERASE 67 U/L (15-37); BILIRUBIN,TOTAL 0.7 mg/dL (0.1-1.0); TOTAL PROTEIN, SERUM 8.5 g/dL (6.4-8.2)
[2018-01-16] MEDS ORDERED: LORazepam 2 MG TABLET PO ONE (11:45)
[2018-01-16] MEDS ORDERED: HALOPERIDOL 5 MG TABLET PO ONE (11:45)
[2018-01-16] MEDS ORDERED: LORazepam 2 MG TABLET PO PRN (12:45)
[2018-01-16] MEDS ORDERED: ACETAMINOPHEN 325 MG TABLET PO PRN ×2 (12:45→21:30)
[2018-01-16] MEDS ORDERED: ZOLPIDEM TARTRATE 10 MG TABLET PO PRN ×2 (12:45→21:45)
[2018-01-16] MEDS ORDERED: IBUPROFEN 400 MG TABLET PO PRN ×2 (12:45→21:30)
[2018-01-16] MEDS ORDERED: OLANZapine 5 MG RAPDIS TABLET PO PRN (12:45)
[2018-01-16 20:56] VITALS: BP 112/70
[2018-01-16] MEDS ORDERED: ALBUTEROL SULFATE HFA 90 MCG/PUFF 8 GM INHALER IH PRN (21:30)
[2018-01-16] MEDS ORDERED: CloNIDine HCL 0.1 MG TABLET PO PRN (21:30)
[2018-01-16] MEDS ORDERED: GuaiFENesin/D-METHORPHAN [SUGAR-FREE] 200-20MG/10 ML SYRUP UDCUP PO PRN (21:30)
[2018-01-16] MEDS ORDERED: LOPERAMIDE HCL 2 MG CAPSULE PO PRN (21:30)
[2018-01-16] MEDS ORDERED: DOCUSATE SODIUM 100 MG CAPSULE PO PRN (21:30)
[2018-01-16] MEDS ORDERED: PETROLATUM,WHITE 71 GM JELLY TP PRN (21:30)
[2018-01-16] MEDS ORDERED: ONDANSETRON HCL 4 MG TABLET PO PRN (21:30)
[2018-01-16] MEDS ORDERED: NICOTINE 14 MG/24 HOUR PATCH TD PRN (21:30)
[2018-01-16] MEDS ORDERED: MAG HYDROX/AL HYDROX/SIMETH ES 30 ML SUSPENSION UDCUP PO PRN (21:30)
[2018-01-16] MEDS ORDERED: MAGNESIUM HYDROXIDE SUSPENSION 30 ML UDCUP PO PRN (21:30)
[2018-01-16] MEDS ORDERED: HALOPERIDOL 5 MG TABLET PO PRN (21:45)
[2018-01-17 05:22] LABS: BASOPHILS % (AUTO) 0.6 % (0.0-2.0); EOSINOPHILS % (AUTO) 2.4 % (1.0-6.0); HEMATOCRIT 31.3 % (36-46); HEMOGLOBIN 10.6 g/dL (12.0-16.0); LYMPHOCYTES # (AUTO) 2.6 K/uL (1.0-4.8); LYMPHOCYTES % (AUTO) 32.4 % (22.0-44.0); MEAN CORPUSCULAR HEMOGLOBIN 28.3 pg (26.0-34.0); MEAN CORPUSCULAR HGB CONC 33.8 G/dL (31.0-37.0); MEAN CORPUSCULAR VOLUME 84 fL (80-100); MONOCYTES # (AUTO) 0.8 K/uL (0.1-1.0); MONOCYTES % (AUTO) 9.9 % (2.0-9.0); NEUTROPHILS # (AUTO) 4.4 K/uL (1.8-7.7); NEUTROPHILS % (AUTO) 54.7 % (40.0-70.0); PLATELET COUNT (AUTO) 370 K/uL (150-450); RED BLOOD CELL COUNT(AUTO) 3.74 MIL/uL (4.00-5.20); RED CELL DISTRIBUTION WIDTH 15.8 % (11.5-14.5)
[2018-01-17 05:28] LABS: HEMOGLOBIN A1C 5.1 % (4.5-6.2)
[2018-01-17 05:43] LABS: ALANINE AMINOTRANSFERASE 43 U/L (12-78); ALBUMIN 2.6 g/dL (3.4-5.0); ALKALINE PHOSPHATASE 58 U/L (46-116); ANION GAP 6 mmol/L (8-16); ASPARTATE AMINOTRANSFERASE 43 U/L (15-37); BILIRUBIN,TOTAL 0.5 mg/dL (0.1-1.0); CALCIUM, TOTAL 7.7 mg/dL (8.8-10.5); CARBON DIOXIDE 29 mmol/L (22-29); CHLORIDE 104 mmol/L (98-107); CREATININE 0.91 mg/dL (0.60-1.30); GLOMERULAR FILTR. RATE CALC > 60 mL/min (>60); GLUCOSE,RANDOM 106 mg/dL (70-110); POTASSIUM 3.3 mmol/L (3.5-5.1); SODIUM SERUM 139 mmol/L (136-145); THYROID STIMULATING HORMONE 0.73 uIU/mL (0.36-3.74); TOTAL PROTEIN, SERUM 6.3 g/dL (6.4-8.2); UREA NITROGEN, BLOOD 12 mg/dL (7-18)
[2018-01-17 09:19] VITALS: BP 102/57
[2018-01-17] MEDS: LORazepam 2 MG TABLET PO PRN (13:50)
[2018-01-17 15:39] VITALS: BP 107/61
[2018-01-17 17:25] VITALS: BP 123/76
[2018-01-17] MEDS ORDERED: POTASSIUM CHLORIDE 20 MEQ ER TABLET PO ONE (18:00)
[2018-01-17] MEDS ORDERED: PALIPERIDONE 6 MG ER TABLET PO SCH (21:00)
[2018-01-18 00:38] VITALS: BP 100/62
[2018-01-18] MEDS: FLUoxetine HCL 20 MG CAPSULE PO SCH (08:20)
[2018-01-18] MEDS: FERROUS SULFATE 325 MG EC TABLET PO SCH ×2 (11:55→16:37)
[2018-01-18 16:30] VITALS: BP 120/67
[2018-01-18] MEDS: PALIPERIDONE 3 MG ER TABLET PO SCH (21:18)
[2018-01-19 00:20] VITALS: BP 102/77
[2018-01-19] MEDS: FERROUS SULFATE 325 MG EC TABLET PO SCH ×3 (06:53→17:03)
[2018-01-19] MEDS: FLUoxetine HCL 20 MG CAPSULE PO SCH (09:16)
[2018-01-19 17:30] VITALS: BP 107/63
[2018-01-19] MEDS: PALIPERIDONE 3 MG ER TABLET PO SCH (21:02)
[2018-01-20 06:25] VITALS: BP 108/68
[2018-01-20] MEDS: FERROUS SULFATE 325 MG EC TABLET PO SCH ×3 (06:55→16:31)
[2018-01-20 08:25] VITALS: BP 132/80
[2018-01-20] MEDS: FLUoxetine HCL 20 MG CAPSULE PO SCH (08:44)
[2018-01-20 16:00] VITALS: BP 104/66
[2018-01-20] MEDS: LORazepam 2 MG TABLET PO PRN (16:31)
[2018-01-20] MEDS: PALIPERIDONE 3 MG ER TABLET PO SCH (20:40)
[2018-01-21 00:38] VITALS: BP 116/74
[2018-01-21] MEDS: FERROUS SULFATE 325 MG EC TABLET PO SCH ×3 (06:50→17:03)
[2018-01-21] MEDS: FLUoxetine HCL 20 MG CAPSULE PO SCH (08:29)
[2018-01-21 08:33] VITALS: BP 134/65
[2018-01-21] MEDS ORDERED: PALIPERIDONE PALMITATE 234 MG/1.5 ML SYRINGE IM ONE (10:00)
[2018-01-21 16:17] VITALS: BP 100/61
[2018-01-21] MEDS: PALIPERIDONE 3 MG ER TABLET PO SCH (20:31)
[2018-01-22 00:16] VITALS: BP 114/68
[2018-01-22] MEDS: FERROUS SULFATE 325 MG EC TABLET PO SCH ×3 (06:50→16:48)
[2018-01-22 08:12] VITALS: BP 111/61
[2018-01-22] MEDS: FLUoxetine HCL 20 MG CAPSULE PO SCH (09:17)
[2018-01-22 16:26] VITALS: BP 107/62
[2018-01-22] MEDS: LORazepam 2 MG TABLET PO PRN (16:47)
[2018-01-22] MEDS: PALIPERIDONE 3 MG ER TABLET PO SCH (20:14)
[2018-01-23 04:22] VITALS: BP 110/57
[2018-01-23] MEDS: FERROUS SULFATE 325 MG EC TABLET PO SCH ×3 (06:49→16:20)
[2018-01-23 08:00] VITALS: BP 112/61
[2018-01-23 08:58] LABS: % IRON SATURATION 22.9 % (22-44)
[2018-01-23] MEDS: FLUoxetine HCL 20 MG CAPSULE PO SCH (09:01)
[2018-01-23] MEDS: LORazepam 2 MG TABLET PO PRN (16:20)
[2018-01-23 19:12] VITALS: BP 102/60
[2018-01-23] MEDS: PALIPERIDONE 3 MG ER TABLET PO SCH (20:57)
[2018-01-24 00:39] VITALS: BP 104/66
[2018-01-24] MEDS: FERROUS SULFATE 325 MG EC TABLET PO SCH ×2 (06:48→11:36)
[2018-01-24 08:29] VITALS: BP 120/61
[2018-01-24] MEDS: FLUoxetine HCL 20 MG CAPSULE PO SCH (08:39)
[2018-01-24] MEDS ORDERED: PALI9TAB PO (10:05)
== END 2018-01-24 15:18 | disposition home or self-care (01) | DRG 885 ==
LOC: EMS 09:39 → AHU 20:01 → B2S 01-17 16:32
PROVIDERS: ATTEND Psychiatry & Neurology Psychiatry
DX: F25.0 Schizoaffective disorder, bipolar type (principal); F19.20 Other psychoactive substance dependence, uncomplicated; D64.9 Anemia, unspecified; D72.829 Elevated white blood cell count, unspecified; F10.10 Alcohol abuse, uncomplicated; R74.0 Nonspecific elevation of levels of transaminase and lactic acid dehydrogenase [LDH]; F41.9 Anxiety disorder, unspecified; K21.9 Gastro-esophageal reflux disease without esophagitis; E66.9 Obesity, unspecified; K59.00 Constipation, unspecified; Z59.0 Homelessness; F17.210 Nicotine dependence, cigarettes, uncomplicated; Z91.19 Patient's noncompliance with other medical treatment and regimen; Z71.41 Alcohol abuse counseling and surveillance of alcoholic; Z71.51 Drug abuse counseling and surveillance of drug abuser; Z79.899 Other long term (current) drug therapy; Z88.8 Allergy status to other drugs, medicaments and biological substances; Z68.34 Body mass index [BMI] 34.0-34.9, adult; Z28.21 Immunization not carried out because of patient refusal
CPT/HCPCS: 82728; 83036; 83540; 83550; 84132; 84443; 87081; G0378; G0480